=== PATIENT | female | born 1950 | race Caucasian/White ===

== ENCOUNTER 2017-01-21 18:31 | Inpatient (IN) | payer MEDICARE, OTHER ==
[~2017-01-21] VITALS: Ht 162.6 cm; Wt 95.3 kg
[2017-01-21 18:30] VITALS: BP 137/69
--- NOTE | 2017-01-21 18:30 | NUR ---
Received this admission from [facility] per gurney/ambulance with the chief complaint of weakness, s/p fall with the diagnosis of General debility. Transferred to bed comfortably. Routine admission care rendered. Awake, alert, oriented x 4, limited movement of RUE and LLE, continent of bowel and bladder. Endorsed for further care and eval.
--- NOTE | 2017-01-21 19:00 | NUR ---
Received report from Michele Hunter RN. Received patient sitting up in bed. Son at bedside. Dr. Garza at bedside. Patient is alert and verbally responsive. Able to make needs known. Denies any pain and discomfort at this time. No acute distress. No SOB. Patient is on room air. Kept clean and dry. All needs attended to promptly. Call light within reach. Will continue to monitor.
--- NOTE | 2017-01-21 20:02 | NUR ---
Patient seen and examined by Dr. Garza with order to do CT of the right shoulder/humerus, left hip and left knee to rule out fracture and for Ortho consult. Orders carried out. Dr. Walls (ortho home care companion) made aware and agreeable with diagnostics as ordered above and to notify him of the results. endorsed accordingly to mine shifter. Addendum: 01/21/17 at 2047 by CORINE FARIAS RN Addendum: Verified medication list with Dr. Garza and made order changes. Orders carried out.
[2017-01-21 20:04] VITALS: BP 141/65
[2017-01-21] MEDS ORDERED: MODA100T14 PO (20:07)
[2017-01-21] MEDS ORDERED: ZOLP10TA2 PO (20:07)
[2017-01-21] MEDS ORDERED: LORA1TAB PO (20:07)
[2017-01-21] MEDS ORDERED: ATOR20TA PO (20:07)
[2017-01-21] MEDS ORDERED: SUCR1TAB PO (20:07)
[2017-01-21] MEDS ORDERED: IRON150C10 PO (20:07)
[2017-01-21] MEDS ORDERED: TAMS0.4C34 PO (20:07)
[2017-01-21] MEDS ORDERED: PANT40TA4 PO (20:07)
[2017-01-21] MEDS ORDERED: VENL75CA62 PO (20:07)
[2017-01-21] MEDS ORDERED: PARO20TA7 PO (20:07)
[2017-01-21] MEDS ORDERED: GABA600T2 PO (20:07)
[2017-01-21] MEDS ORDERED: MORP30TA PO (20:07)
[2017-01-21] MEDS ORDERED: DILT180C PO (20:07)
[2017-01-21] MEDS ORDERED: MORP15TA71 PO (20:32)
--- NOTE | 2017-01-21 21:45 | NUR ---
Patient brought down to CT scan by radiology via wheelchair. Tolerated transfer well.
[2017-01-21] MEDS: SUCRALFATE 1 G TABLET PO SCH (22:40)
[2017-01-21] MEDS: FERROUS SULFATE 325 MG TABEC PO SCH (22:40)
[2017-01-21] MEDS: ATORVASTATIN 20 MG TABLET PO SCH (22:40)
[2017-01-21] MEDS: MORPHINE SULFATE SR 15 MG TABLET.SA PO SCH (22:42)
[2017-01-21] MEDS: LORAZEPAM 1 MG TABLET PO PRN (22:42)
--- NOTE | 2017-01-21 22:45 | NUR ---
Called Radiology and ask for patient CT scan result, per Jaime, scan will be read tomorrow AM.
[2017-01-21] MEDS: ZOLPIDEM 5 MG TABLET PO PRN (23:37)
--- NOTE | 2017-01-22 05:16 | NUR ---
PATIENT SLEPT MOST OF THE NIGHT, NO SOB NO CHEST PAIN, REQUIRES MIN TO MAX ASSIST WITH ADL'S, CALL LIGHTS WITHIN REACH.
[2017-01-22] MEDS: PANTOPRAZOLE SODIUM 40 MG TABLET.DR PO SCH ×2 (06:25→17:30)
[2017-01-22] MEDS: MORPHINE SULFATE SR 15 MG TABLET.SA PO SCH (06:27)
[2017-01-22 07:33] LABS: BASOPHILS % (AUTO) 0.5 % (0.0-2.0); EOSINOPHILS # (AUTO) 0.4 K/uL (0.0-0.7); EOSINOPHILS % (AUTO) 5.9 % (0.0-7.0); HEMATOCRIT 28.6 % (37-47); LYMPHOCYTES # (AUTO) 1.5 K/UL (0.8-4.8); LYMPHOCYTES % (AUTO) 20.8 % (20.5-51.5); MEAN CORPUSCULAR HEMOGLOBIN 24.4 UUG (27.0-31.0); MEAN CORPUSCULAR HGB CONC 32 g/dL (32.0-37.0); MEAN CORPUSCULAR VOLUME 77.3 FL (81.0-99.0); MONOCYTES # (AUTO) 0.8 K/UL (0.1-1.30); MONOCYTES % (AUTO) 10.5 % (0.0-11.0); NEUTROPHILS # (AUTO) 4.7 K/UL (1.8-8.9); NEUTROPHILS % (AUTO) 62.3 % (38.5-71.5); PLATELET COUNT (AUTO) 356 K/UL (150-450); WHITE BLOOD COUNT (AUTO) 7.4 K/UL (4.0-11.2)
[2017-01-22 07:35] LABS: CREATININE 0.8 mg/dL (0.6-1.3); MAGNESIUM 1.8 mg/dL (1.8-2.4); PHOSPHOROUS 2.8 mg/dL (2.5-4.9); POTASSIUM 3.8 mmol/L (3.5-5.1)
--- NOTE | 2017-01-22 08:00 | NUR ---
Awake, alert, oriented x 4. Continent, requested for bedpan.
[2017-01-22 08:22] VITALS: BP 147/78
[2017-01-22] MEDS ORDERED: HOME MED MISCELLANEOUS PO SCH (09:00)
[2017-01-22] MEDS: SUCRALFATE 1 G TABLET PO SCH ×4 (10:24→21:30)
[2017-01-22] MEDS: DILTIAZEM HCL CD 180 MG CAP.SR.24H PO SCH (10:25)
[2017-01-22] MEDS: VENLAFAXINE XR 75 MG CAP.SR.24H PO SCH (10:25)
[2017-01-22] MEDS: FERROUS SULFATE 325 MG TABEC PO SCH ×2 (10:25→21:30)
[2017-01-22] MEDS: TAMSULOSIN HCL 0.4 MG CAP.SR.24H PO SCH (10:26)
[2017-01-22] MEDS: GABAPENTIN 300 MG CAPSULE PO SCH ×3 (10:26→17:31)
[2017-01-22] MEDS: PAROXETINE HCL 20 MG TABLET PO SCH (10:26)
[2017-01-22] MEDS: MODAFINIL 100 MG TABLET PO SCH (10:26)
--- NOTE | 2017-01-22 11:00 | NUR ---
CT report relayed to Dr. Garza. Sling ordered. DENAE non weight bearing, instructed.
--- NOTE | 2017-01-22 14:00 | NUR ---
Anxious. Ativan po given as requested.
[2017-01-22] MEDS: MORPHINE SULFATE SR 30 MG TABLET.SA PO SCH ×2 (14:06→21:31)
[2017-01-22] MEDS: LORAZEPAM 1 MG TABLET PO PRN ×2 (14:07→21:34)
[2017-01-22 18:08] VITALS: BP 136/67
--- NOTE | 2017-01-22 18:21 | NUR ---
Sling to RUE on, comfortable
--- NOTE | 2017-01-22 19:20 | NUR ---
Received report from ASHLI Angeles. Received patient in bed. Alert and verbally responsive. Able to make needs known. Denies any pain and discomfort. No acute distress. No SOB. On Room air. Sling to RUE. Kept clean and dry. All needs attened to promptly. Call light within reach. Will continue to monitor.
[2017-01-22 20:34] VITALS: BP 139/74
[2017-01-22] MEDS: ATORVASTATIN 20 MG TABLET PO SCH (21:30)
[2017-01-22] MEDS: ZOLPIDEM 5 MG TABLET PO PRN (23:18)
[2017-01-23] MEDS: PANTOPRAZOLE SODIUM 40 MG TABLET.DR PO SCH ×2 (06:31→17:14)
[2017-01-23] MEDS: MORPHINE SULFATE SR 30 MG TABLET.SA PO SCH ×2 (06:31→14:00)
--- NOTE | 2017-01-23 06:58 | NUR ---
Patient slept well throughout the night. No c/o pain and discomfort. No acute distress. No SOB. MS Contin 30mg given. Kept clean and dry. All needs attended to promptly. Call light within reach. Will continue to monitor.
--- NOTE | 2017-01-23 07:00 | NUR ---
Received report form morning shift. Safety check, bed in locked/low position, side rails up x2.
[2017-01-23 08:00] VITALS: BP 129/68
[2017-01-23] MEDS: VENLAFAXINE XR 75 MG CAP.SR.24H PO SCH (09:17)
[2017-01-23] MEDS: GABAPENTIN 300 MG CAPSULE PO SCH ×3 (09:18→17:14)
[2017-01-23] MEDS: SUCRALFATE 1 G TABLET PO SCH ×4 (09:18→21:10)
[2017-01-23] MEDS: DILTIAZEM HCL CD 180 MG CAP.SR.24H PO SCH (09:18)
[2017-01-23] MEDS: PAROXETINE HCL 20 MG TABLET PO SCH (09:18)
[2017-01-23] MEDS: MODAFINIL 100 MG TABLET PO SCH (09:18)
[2017-01-23] MEDS: FERROUS SULFATE 325 MG TABEC PO SCH ×2 (09:18→21:10)
[2017-01-23] MEDS: TAMSULOSIN HCL 0.4 MG CAP.SR.24H PO SCH (09:18)
--- NOTE | 2017-01-23 12:00 | NUR ---
Patient working with PT, patient tolerated well.
[2017-01-23] MEDS ORDERED: LIDOCAINE VISCUS 2% 15 ML UDC MM SCH (13:30)
[2017-01-23] MEDS ORDERED: LIDOCAINE VISCUS 2% 15 ML UDC MM PRN (13:45)
[2017-01-23] MEDS: CHLORHEXIDINE GLUCONATE 15 ML MOUTHWASH MM SCH ×2 (13:58→21:21)
--- NOTE | 2017-01-23 14:47 | NUR ---
LAB reported that the patient is positive for MRSA.
--- NOTE | 2017-01-23 15:48 | NUR ---
Notified Dr. Adolph Treadwell regarding positive result of MRSA of nares with new order of Bactroban BID x 5 days. Order carried out. Patient made aware.
--- NOTE | 2017-01-23 16:23 | NUR ---
Patient continues to ask for morphine and ativan despite low blood pressures and sedation. Patient notified that BP is too low, and her sedation puts her at risk for respiratory depression. Alternate pain medication (Tylenol) is being requested from Dr. Colunga
[2017-01-23] MEDS ORDERED: OXYCODONE/APAP 5-325 MG TABLET PO PRN (17:00)
[2017-01-23] MEDS: ACETAMINOPHEN 325 MG TABLET PO PRN (17:15)
--- NOTE | 2017-01-23 18:57 | NUR ---
PATIENT PARTICIPATED IN PHYSICAL THERAPY, TOLERATED WELL. PATIENT EXPERIENCED PAIN RELIEF WITH TYLENOL. MEDICATION REGIMEN HAS CHANGED PLEASE SEE EMAR. PATIENT IS CURRENTLY PAIN FREE AND COMFORTABLE. PATIENT WILL BE SEEN BY ORTHO FOR POSSIBLE SURGERY OF RIGHT SHOULDER.
--- NOTE | 2017-01-23 19:30 | NUR ---
RECEIVED PATIENT RESTING IN BED, IN NO ACUTE DISTRESS, NO SOB. SLING ON RIGHT ARM, CSM ADEQUATE TO RIGHT FINGERS, PATIENT NOT TO LIFT ANY WEIGHT ON THE RIGHT ARM. PATIENT C/O OF GENERALIZED PAIN, REPOSITIONED FOR COMFORT. PAIN MED DUE AT 2200. FIRST TIME GETTING UP TO USE THE BEDSIDE COMMODE WITH 2 PERSON ASSIST AND WALKER, PATIENT TOLERATED WELL. CALL LIGHT WITHIN REACH, BED ALARM ON. WILL CONTINUE TO MONITOR.
[2017-01-23 20:00] VITALS: BP 128/66
[2017-01-23] MEDS: ATORVASTATIN 20 MG TABLET PO SCH (21:10)
[2017-01-23] MEDS: MORPHINE SULFATE SR 15 MG TABLET.SA PO SCH (21:12)
[2017-01-23] MEDS: MUPIROCIN 2% OINT 22 GM TUBE NS SCH (21:22)
[2017-01-23] MEDS: LORAZEPAM 1 MG TABLET PO PRN (22:09)
[2017-01-24] MEDS: ZOLPIDEM 5 MG TABLET PO PRN (02:05)
--- NOTE | 2017-01-24 06:00 | NUR ---
slept on and off tonight. was able to get oob with nwb of right arm, steadying herself with walker and pivoting a bit with walking to bsc to void.assisted with putting her legs back in bed after retrun from bsc. medicated with atc morphine po, ativan x 1 for anxiety and ambien for sleep. pain is manageable enough where she could sleep at intervals.call light within reach aat with bed alarm on. appears in nad at this time
[2017-01-24] MEDS: PANTOPRAZOLE SODIUM 40 MG TABLET.DR PO SCH ×2 (06:43→17:04)
[2017-01-24] MEDS: MORPHINE SULFATE SR 15 MG TABLET.SA PO SCH ×3 (06:44→22:01)
[2017-01-24 08:00] VITALS: BP 138/71
[2017-01-24] MEDS: FERROUS SULFATE 325 MG TABEC PO SCH ×2 (09:00→22:00)
[2017-01-24] MEDS: TAMSULOSIN HCL 0.4 MG CAP.SR.24H PO SCH (09:00)
[2017-01-24] MEDS: MODAFINIL 100 MG TABLET PO SCH (09:00)
[2017-01-24] MEDS: DILTIAZEM HCL CD 180 MG CAP.SR.24H PO SCH (09:00)
[2017-01-24] MEDS: MUPIROCIN 2% OINT 22 GM TUBE NS SCH ×2 (09:00→22:02)
[2017-01-24] MEDS: VENLAFAXINE XR 75 MG CAP.SR.24H PO SCH (09:00)
[2017-01-24] MEDS: SUCRALFATE 1 G TABLET PO SCH ×4 (09:01→22:02)
[2017-01-24] MEDS: PAROXETINE HCL 20 MG TABLET PO SCH (09:01)
[2017-01-24] MEDS: CHLORHEXIDINE GLUCONATE 15 ML MOUTHWASH MM SCH ×2 (09:01→22:02)
[2017-01-24] MEDS: GABAPENTIN 300 MG CAPSULE PO SCH ×3 (09:02→17:04)
[2017-01-24] MEDS: SENNOSIDES/DOCUSATE SODIUM TABLET PO SCH (09:45)
[2017-01-24] MEDS ORDERED: BISACODYL 5 MG TABLET.DR PO PRN (09:45)
[2017-01-24] MEDS: LORAZEPAM 1 MG TABLET PO PRN ×2 (12:30→23:16)
[2017-01-24] MEDS: OXYCODONE/APAP 5-325 MG TABLET PO PRN (12:45)
--- NOTE | 2017-01-24 13:43 | NUR ---
Proof Inspector: SW met with patient at beside to assess needs and provide support. Pt was admitted for debility and functional impairment due to a fall at home. Per pt, she suffered from a fall at home and required rehabilitation. Pt appeared fatigued during interview and reported she had just completed some physical therapy. Pt verbalized she was feeling "tired" after physical therapy. She appeared depressed due to decline in functioning. She also appeared guarded during interview and provided minimal information. Per pt, she lives at home alone and has a caregiver. Pt reported to have a strong support system from her children and stated they are very involved. SW provided emotional support to deal with pt's depressive symptoms related to her decline in functioning. SW provided supportive counseling to address patients issues of loss related to her recent fall and decline in functioning. SW will continue to provide support and address issues of loss related to recent falls and hospitalization.
--- NOTE | 2017-01-24 15:30 | NUR ---
Dr. Florence paged in regard to communited fracture of the humerous head of the right arm. According to alumnae secretary MD is likely in surgery and will paged at its completion. Patient at this time is comfortable. Pain medication given as scheduled and PRNs utilized for break through pain as well. Will continue to monitor for safety with transfers and comfort.
--- NOTE | 2017-01-24 19:30 | NUR ---
received patient in nad, and without c/o acute pain.resting comfortably. right arm in sling and arm is not to be used to lift or carry items. csm adequate to right fingers. call light within reach aat. and bed alarm on. pm snack given and taken at 100%
[2017-01-24 20:59] VITALS: BP 127/65
[2017-01-24] MEDS: ATORVASTATIN 20 MG TABLET PO SCH (22:00)
[2017-01-25] MEDS: ZOLPIDEM 5 MG TABLET PO PRN ×2 (00:56→23:07)
--- NOTE | 2017-01-25 06:00 | NUR ---
SLEPT WELL LAST NIGHT WITH MANAGEABLE PAIN WITH HER ATC MS CONTIN, ATIVAN X1 PO AND AMBIEN FOR SLEEP. NO RESPIRATORY DISTRESS NOTED.CSM ADEQUATE TO RIGHT FINGERS, CNTINUES WITH SLING ON RIGHT ARM. CALL LIGHT WITHIN REACH.
[2017-01-25] MEDS: PANTOPRAZOLE SODIUM 40 MG TABLET.DR PO SCH ×2 (06:37→17:15)
[2017-01-25] MEDS: MORPHINE SULFATE SR 15 MG TABLET.SA PO SCH ×3 (06:38→21:12)
--- NOTE | 2017-01-25 07:20 | NUR ---
report received from Adali CORNELIUS. patient is full code Addendum: 01/25/17 at 1027 by NATHAN LEVINE RN Amended: Links added.
[2017-01-25 08:00] VITALS: BP 132/71
[2017-01-25] MEDS: FERROUS SULFATE 325 MG TABEC PO SCH ×2 (09:05→21:08)
[2017-01-25] MEDS: MODAFINIL 100 MG TABLET PO SCH (09:05)
[2017-01-25] MEDS: VENLAFAXINE XR 75 MG CAP.SR.24H PO SCH (09:05)
[2017-01-25] MEDS: PAROXETINE HCL 20 MG TABLET PO SCH (09:05)
[2017-01-25] MEDS: TAMSULOSIN HCL 0.4 MG CAP.SR.24H PO SCH (09:05)
[2017-01-25] MEDS: SENNOSIDES/DOCUSATE SODIUM TABLET PO SCH (09:06)
[2017-01-25] MEDS: SUCRALFATE 1 G TABLET PO SCH ×4 (09:06→21:09)
[2017-01-25] MEDS: DILTIAZEM HCL CD 180 MG CAP.SR.24H PO SCH (09:06)
[2017-01-25] MEDS: GABAPENTIN 300 MG CAPSULE PO SCH ×3 (09:06→17:15)
[2017-01-25] MEDS: CHLORHEXIDINE GLUCONATE 15 ML MOUTHWASH MM SCH ×2 (09:07→21:10)
[2017-01-25] MEDS: MUPIROCIN 2% OINT 22 GM TUBE NS SCH ×2 (09:07→21:10)
--- NOTE | 2017-01-25 09:09 | NUR ---
Patient sleeping but arousable. wanted to be left alone. breakfast tray untouched. Addendum: 01/25/17 at 0909 by NATHAN LEVINE RN Amended: Links added.
--- NOTE | 2017-01-25 11:04 | NUR ---
took am meds. still did not eat breakfast Addendum: 01/25/17 at 1105 by NATHAN LEVINE RN Amended: Links added.
[2017-01-25] MEDS: OXYCODONE/APAP 5-325 MG TABLET PO PRN (12:53)
[2017-01-25] MEDS: LORAZEPAM 1 MG TABLET PO PRN ×2 (12:53→21:15)
--- NOTE | 2017-01-25 13:01 | NUR ---
medicated for anxiety and for right shoulder pain and right knee pain. Addendum: 01/25/17 at 1301 by NATHAN LEVINE RN Amended: Links added.
--- NOTE | 2017-01-25 17:19 | NUR ---
family at the bedside. had questions re: isolation precautions. Education given Addendum: 01/25/17 at 1719 by NATHAN LEVINE RN Amended: Links added.
--- NOTE | 2017-01-25 19:30 | NUR ---
Received report from day shift. Received patient in bed. On contact isolation for MRSA nares. Contact precautions followed by staff. Denies any pain and discomfort at this time. No acute distress noted. No SOB. On room air. Sling to RUE in place. Kept clean and dry. All needs attended to promptly. Call light within reach. Will continue to monitor.
[2017-01-25] MEDS: ATORVASTATIN 20 MG TABLET PO SCH (21:08)
[2017-01-25 22:05] VITALS: BP 137/70
[2017-01-26] MEDS: MORPHINE SULFATE SR 15 MG TABLET.SA PO SCH ×3 (06:22→21:27)
--- NOTE | 2017-01-26 06:26 | NUR ---
Patient is awake and verbally responsive. Slept comfortably throughout the night. No acute distress noted. No SOB. Pain level is 6/10. Pain location noted in right shoulder, left knee and left hip. MS Contin 15 mg given. Sling to RUE in place due to fracture. Kept clean and dry. All needs attended to promptly. Call light within reach. Will continue to monitor.
[2017-01-26] MEDS: PANTOPRAZOLE SODIUM 40 MG TABLET.DR PO SCH ×2 (06:30→17:27)
[2017-01-26 08:29] VITALS: BP 138/64
[2017-01-26] MEDS: CHLORHEXIDINE GLUCONATE 15 ML MOUTHWASH MM SCH ×2 (08:41→21:26)
[2017-01-26] MEDS: MUPIROCIN 2% OINT 22 GM TUBE NS SCH ×2 (08:42→21:27)
[2017-01-26] MEDS: FERROUS SULFATE 325 MG TABEC PO SCH ×2 (08:44→21:26)
[2017-01-26] MEDS: TAMSULOSIN HCL 0.4 MG CAP.SR.24H PO SCH (08:44)
[2017-01-26] MEDS: MODAFINIL 100 MG TABLET PO SCH (08:44)
[2017-01-26] MEDS: DILTIAZEM HCL CD 180 MG CAP.SR.24H PO SCH (08:45)
[2017-01-26] MEDS: SUCRALFATE 1 G TABLET PO SCH ×4 (08:45→21:26)
[2017-01-26] MEDS: GABAPENTIN 300 MG CAPSULE PO SCH ×3 (08:46→17:27)
[2017-01-26] MEDS: VENLAFAXINE XR 75 MG CAP.SR.24H PO SCH (08:46)
[2017-01-26] MEDS: SENNOSIDES/DOCUSATE SODIUM TABLET PO SCH (08:46)
[2017-01-26] MEDS: PAROXETINE HCL 20 MG TABLET PO SCH (08:49)
[2017-01-26 10:32] LABS: BASOPHILS % (AUTO) 0.5 % (0.0-2.0); EOSINOPHILS # (AUTO) 0.6 K/uL (0.0-0.7); EOSINOPHILS % (AUTO) 7.8 % (0.0-7.0); HEMATOCRIT 28.5 % (37-47); HEMOGLOBIN 9.3 G/DL (12.0-16.0); LYMPHOCYTES # (AUTO) 1.1 K/UL (0.8-4.8); LYMPHOCYTES % (AUTO) 14.9 % (20.5-51.5); MEAN CORPUSCULAR HEMOGLOBIN 25.3 UUG (27.0-31.0); MEAN CORPUSCULAR HGB CONC 33 g/dL (32.0-37.0); MONOCYTES # (AUTO) 0.7 K/UL (0.1-1.30); MONOCYTES % (AUTO) 9.8 % (0.0-11.0); NEUTROPHILS # (AUTO) 4.7 K/UL (1.8-8.9); PLATELET COUNT (AUTO) 385 K/UL (150-450); RED BLOOD CELL COUNT(AUTO) 3.66 MIL/UL (4.2-5.4); WHITE BLOOD COUNT (AUTO) 7.1 K/UL (4.0-11.2)
[2017-01-26 11:24] LABS: BILIRUBIN,TOTAL 0.2 mg/dL (0.2-1.0); CREATININE 0.8 mg/dL (0.6-1.3); MAGNESIUM 2.1 mg/dL (1.8-2.4); PHOSPHOROUS 3.8 mg/dL (2.5-4.9); POTASSIUM 3.6 mmol/L (3.5-5.1); TOTAL PROTEIN, SERUM 5.8 g/dL (6.4-8.2)
[2017-01-26 13:12] LABS: THYROID STIMULATING HORMONE 1.388 mIU/mL (0.358-3.740)
--- NOTE | 2017-01-26 16:28 | NUR ---
IDT MEETING 01/26/17
[2017-01-26] MEDS: LORAZEPAM 1 MG TABLET PO PRN (17:27)
[2017-01-26] MEDS: OXYCODONE/APAP 5-325 MG TABLET PO PRN (17:31)
[2017-01-26] MEDS: ATORVASTATIN 20 MG TABLET PO SCH (21:26)
[2017-01-26 22:09] VITALS: BP 121/60
[2017-01-26] MEDS: ZOLPIDEM 5 MG TABLET PO PRN (23:15)
[2017-01-27] MEDS: PANTOPRAZOLE SODIUM 40 MG TABLET.DR PO SCH ×2 (06:37→15:59)
[2017-01-27] MEDS: MORPHINE SULFATE SR 15 MG TABLET.SA PO SCH ×3 (06:39→21:18)
--- NOTE | 2017-01-27 07:11 | NUR ---
Patient is awake and verbally responsive. Able to make needs known. Denies any pain and discomfort. MS Contin 15mg given as ordered. No acute distress. No SOB. Patient up with assist to bedside commode this AM. Tolerated well. Sling to RUE in place. All needs attended to promptly. Call light within reach. Will continue to monitor.
[2017-01-27 08:15] VITALS: BP 139/72
--- NOTE | 2017-01-27 08:33 | NUR ---
RECEIVED PATIENT ASLEEP IN BED. CALL LIGHT WITHIN REACH. NO S/S OF DISTRESS. WILL CONTINUE TO MONITOR
[2017-01-27] MEDS: MODAFINIL 100 MG TABLET PO SCH (09:26)
[2017-01-27] MEDS: VENLAFAXINE XR 75 MG CAP.SR.24H PO SCH (09:27)
[2017-01-27] MEDS: DILTIAZEM HCL CD 180 MG CAP.SR.24H PO SCH (09:27)
[2017-01-27] MEDS: FERROUS SULFATE 325 MG TABEC PO SCH ×2 (09:28→21:19)
[2017-01-27] MEDS: SENNOSIDES/DOCUSATE SODIUM TABLET PO SCH (09:28)
[2017-01-27] MEDS: GABAPENTIN 300 MG CAPSULE PO SCH ×3 (09:28→16:53)
[2017-01-27] MEDS: TAMSULOSIN HCL 0.4 MG CAP.SR.24H PO SCH (09:28)
[2017-01-27] MEDS: SUCRALFATE 1 G TABLET PO SCH ×4 (09:28→21:19)
[2017-01-27] MEDS: PAROXETINE HCL 20 MG TABLET PO SCH (09:28)
[2017-01-27] MEDS: CHLORHEXIDINE GLUCONATE 15 ML MOUTHWASH MM SCH ×2 (09:29→21:23)
[2017-01-27] MEDS: MUPIROCIN 2% OINT 22 GM TUBE NS SCH ×2 (09:29→21:23)
--- NOTE | 2017-01-27 09:40 | NUR ---
PATIENT AWAKE ALERT AND ORIENTED. NO COMPLAINTS OF DISCOMFORT. STILL WITH SHOULDER AND BACK PAIN RATED 4/10. PAIN IMPROVED. SHE SAID SHE IS NOT USED TO EATING BREAKFAST. REFUSED TO EAT BREAKFAST BUT DRANK MILK. ENCOURAGED PATIENT TO MAKE NEEDS KNOWN AND CALL IF SHE NEEDS THE COMMODE. CALL LIGHT WITHIN REACH.
--- NOTE | 2017-01-27 11:40 | NUR ---
OT AXEL FOUND PATIENT IN SUPINE POSITION ON FLOOR NEXT TO HER BED. WHEN HE HEARD THE PATIENT IN A STARTLED VOICE. ACCORDING TO PATIENT, SHE USED HER COMMODE AND WANTED TO CHANGE HER CLOTHES, WHEN SHE TRIED TO GET HER CLOTHES, SHE FELL HITTING HER BUTTOCKS, POSTERIOR HEAD AND KNEES. PATIENT SAID " I THOUGHT I COULD DO IT ON MY OWN, SO I DID IT". PATIENT IS ALERT X4, AWAKE AND ORIENTED NO OBVIOUS BRUISE OR OPEN WOUNDS NOTED. ENCOURAGED PATIENT TO USE CALL LIGHT WHEN SHE NEEDS SOMETHING OR WHEN SHE NEEDS TO USE HER COMMODE. INFORMED DR. DAVILA, CT SCAN OF HEAD W/O CONTRAST AND L KNEE XRAY ORDERED AND DONE. INFORMED DR. ZAZUETA. PT EVALUATION DONE. INFORMED DIRECTOR, RAYNA CORNELIUS OF INCIDENT. INFORMED ALBER RODRIGUEZ SON-IN LAW OF INCIDENT. S/P FALL HUDDLE DONE WITH CHARGE NURSE, PT AND DRAFTER AUTOMOTIVE DESIGN LAYOUT.
[2017-01-27] MEDS: ACETAMINOPHEN 325 MG TABLET PO PRN (11:48)
[2017-01-27] MEDS: LORAZEPAM 1 MG TABLET PO PRN (15:59)
--- NOTE | 2017-01-27 16:00 | NUR ---
Called Dr. Walls's office to follow up consultation regarding CT scan result of right shoulder but per Hannah clerk secretary MD is not available and advised to just call 's cellphone number. Called Dr. Walls's cellphone number but no reply hence left a message, awaiting call back.
--- NOTE | 2017-01-27 18:25 | NUR ---
INFORMED DR. DAVILA OF XRAY RESULT AND CT SCAN RESULT. NO NEW ORDERS AT THIS TIME. PATIENT AWAKE, ALERT AND ORIENTED. NO CHANGES IN MENTAL STATUS.
[2017-01-27] MEDS: OXYCODONE/APAP 5-325 MG TABLET PO PRN ×3 (18:41→19:17)
[2017-01-27] MEDS: ATORVASTATIN 20 MG TABLET PO SCH (21:18)
[2017-01-27 21:38] VITALS: BP 136/68
[2017-01-27] MEDS: ZOLPIDEM 5 MG TABLET PO PRN (23:08)
[2017-01-28] MEDS: LORAZEPAM 1 MG TABLET PO PRN ×2 (04:53→21:30)
[2017-01-28] MEDS: PANTOPRAZOLE SODIUM 40 MG TABLET.DR PO SCH ×2 (06:30→16:30)
[2017-01-28] MEDS: MORPHINE SULFATE SR 15 MG TABLET.SA PO SCH ×3 (06:30→21:31)
--- NOTE | 2017-01-28 06:36 | NUR ---
Patient alert and oriented and verbally able to let needs known. Slept intermittently throughout the night. Showed no signs of respiratory distress. Patient does have call light within reach, all needs attended to.
[2017-01-28 07:00] VITALS: BP 139/73
[2017-01-28] MEDS: MODAFINIL 100 MG TABLET PO SCH (09:00)
--- NOTE | 2017-01-28 11:08 | NUR ---
DAILY NURSING NOTE LEFT WITH TERELL AT [facility] [phone] FOR ORTHO CONSULT REQUESTED.
[2017-01-28] MEDS: VENLAFAXINE XR 75 MG CAP.SR.24H PO SCH (12:31)
[2017-01-28] MEDS: CHLORHEXIDINE GLUCONATE 15 ML MOUTHWASH MM SCH ×2 (12:33→21:31)
[2017-01-28] MEDS: OXYCODONE/APAP 5-325 MG TABLET PO PRN (12:33)
[2017-01-28] MEDS: SUCRALFATE 1 G TABLET PO SCH ×4 (12:34→21:30)
[2017-01-28] MEDS: MUPIROCIN 2% OINT 22 GM TUBE NS SCH ×2 (12:34→21:31)
[2017-01-28] MEDS: DILTIAZEM HCL CD 180 MG CAP.SR.24H PO SCH (12:35)
[2017-01-28] MEDS: SENNOSIDES/DOCUSATE SODIUM TABLET PO SCH (12:38)
[2017-01-28] MEDS: FERROUS SULFATE 325 MG TABEC PO SCH ×2 (12:39→21:29)
[2017-01-28] MEDS: TAMSULOSIN HCL 0.4 MG CAP.SR.24H PO SCH (12:39)
[2017-01-28] MEDS: GABAPENTIN 300 MG CAPSULE PO SCH ×3 (12:39→17:00)
[2017-01-28] MEDS: PAROXETINE HCL 20 MG TABLET PO SCH (12:39)
--- NOTE | 2017-01-28 15:10 | NUR ---
DAILY NURSING NOTE AFTERNOON CARAFATE AND GABAPENTIN HELD D/T FACT SHE JUST TOOK THE MORNING DOSE LATE BECAUSE SHE WANTED TO SLEEP AND NOT BE DISTURBED
--- NOTE | 2017-01-28 19:30 | NUR ---
Received report from ASHLI Beavers. Received patient in bed. Alert and oriented. Able to make needs known. Denies any pain and discomfort at this time. No acute distress. No SOB. On room air. Patient remains on contact isolation for MRSA nares. Contact precautions observed by staff. Sling on RUE in place. Per day shift nurse, patient was seen by Dr. Walls and verbalized for possible surgery of the right shoulder this weekend. No following orders at this time. Also received from report that patient fell a few days ago. Strongly verbalized to patient to use call light when assistance is needed. Patient verbalize understanding. All needs attended to promptly. Call light within reach. Will continue to monitor.
[2017-01-28 20:46] VITALS: BP 135/65
[2017-01-28] MEDS: ATORVASTATIN 20 MG TABLET PO SCH (21:30)
[2017-01-28] MEDS: ZOLPIDEM 5 MG TABLET PO PRN (23:10)
[2017-01-29] MEDS: PANTOPRAZOLE SODIUM 40 MG TABLET.DR PO SCH ×2 (06:31→16:39)
[2017-01-29] MEDS: MORPHINE SULFATE SR 15 MG TABLET.SA PO SCH ×3 (06:34→22:08)
--- NOTE | 2017-01-29 06:36 | NUR ---
Patient awake and slept through the night. No c/o pain and discomfort. No acute distress. No SOB. Kept clean and dry. Sling applied to RUE. AM meds given. Assisted to Bedside commode. All needs attended to promptly. Call light within reach. Will continue to monitor.
[2017-01-29 08:00] VITALS: BP 144/71
[2017-01-29] MEDS: SENNOSIDES/DOCUSATE SODIUM TABLET PO SCH (09:15)
[2017-01-29] MEDS: CHLORHEXIDINE GLUCONATE 15 ML MOUTHWASH MM SCH ×2 (09:15→22:12)
[2017-01-29] MEDS: CHOLECALCIFEROL 400 UNITS TABLET PO SCH (09:18)
[2017-01-29] MEDS: DILTIAZEM HCL CD 180 MG CAP.SR.24H PO SCH (09:18)
[2017-01-29] MEDS: TAMSULOSIN HCL 0.4 MG CAP.SR.24H PO SCH (09:18)
[2017-01-29] MEDS: MODAFINIL 100 MG TABLET PO SCH (09:19)
[2017-01-29] MEDS: PAROXETINE HCL 20 MG TABLET PO SCH (09:20)
[2017-01-29] MEDS: SUCRALFATE 1 G TABLET PO SCH ×4 (09:20→22:08)
[2017-01-29] MEDS: GABAPENTIN 300 MG CAPSULE PO SCH ×3 (09:20→16:39)
[2017-01-29] MEDS: VENLAFAXINE XR 75 MG CAP.SR.24H PO SCH (09:20)
[2017-01-29] MEDS: FERROUS SULFATE 325 MG TABEC PO SCH ×2 (09:20→22:08)
[2017-01-29] MEDS: OXYCODONE/APAP 5-325 MG TABLET PO PRN (12:19)
--- NOTE | 2017-01-29 19:00 | NUR ---
Per Antonina vehicle maintenance supervisor, Dr. Walls is scheduling patient for surgery on Tuesday, still need to confirm time. Informed patient and son Sylvester who is at bedside. Patient remains alert, verbally responsive, coherent, afebrile, not in any form of acute distress. Sling on the right arm. Patient was able to tolerate physical and occupational therapy today. Assisted to her needs. Reminded to always use call light for assistance. Call light placed within reach. Endorsed accordingly to production supervisor off shift nurse Ciera.
[2017-01-29 20:45] VITALS: BP 116/62
[2017-01-29] MEDS: ATORVASTATIN 20 MG TABLET PO SCH (22:08)
[2017-01-29] MEDS: LORAZEPAM 1 MG TABLET PO PRN (22:13)
[2017-01-29] MEDS: ZOLPIDEM 5 MG TABLET PO PRN (23:48)
[2017-01-30] MEDS: PANTOPRAZOLE SODIUM 40 MG TABLET.DR PO SCH ×2 (06:44→17:09)
[2017-01-30] MEDS: MORPHINE SULFATE SR 15 MG TABLET.SA PO SCH ×3 (06:46→22:01)
[2017-01-30 08:25] VITALS: BP 129/68
[2017-01-30] MEDS: GABAPENTIN 300 MG CAPSULE PO SCH ×3 (10:44→17:09)
[2017-01-30] MEDS: FERROUS SULFATE 325 MG TABEC PO SCH ×2 (10:44→20:37)
[2017-01-30] MEDS: SENNOSIDES/DOCUSATE SODIUM TABLET PO SCH (10:44)
[2017-01-30] MEDS: DILTIAZEM HCL CD 180 MG CAP.SR.24H PO SCH (10:44)
[2017-01-30] MEDS: SUCRALFATE 1 G TABLET PO SCH ×4 (10:44→20:38)
[2017-01-30] MEDS: VENLAFAXINE XR 75 MG CAP.SR.24H PO SCH (10:45)
[2017-01-30] MEDS: CHOLECALCIFEROL 400 UNITS TABLET PO SCH (10:45)
[2017-01-30] MEDS: MODAFINIL 100 MG TABLET PO SCH (10:45)
[2017-01-30] MEDS: TAMSULOSIN HCL 0.4 MG CAP.SR.24H PO SCH (10:45)
[2017-01-30] MEDS: PAROXETINE HCL 20 MG TABLET PO SCH (10:45)
[2017-01-30] MEDS: CHLORHEXIDINE GLUCONATE 15 ML MOUTHWASH MM SCH ×2 (10:56→20:37)
[2017-01-30] MEDS: OXYCODONE/APAP 5-325 MG TABLET PO PRN ×2 (10:57→20:21)
--- NOTE | 2017-01-30 11:03 | NUR ---
PT SEEN. GIVEN MEDS AND REQUESTED PERCOCET AND ATIVAN. TOLD PT THAT MEDS WILL BE DIVIDED. PT AGREED TO ADVICE. PTS RIGHT ARM KEPT NEUTRAL. WILL FOLLOW UP WITH SURGEON IF THERE ARE ANY ORDERS BEFORE SURGERY ON TUESDAY.
[2017-01-30] MEDS: ATORVASTATIN 20 MG TABLET PO SCH (20:37)
[2017-01-30 21:51] VITALS: BP 132/64
[2017-01-30] MEDS: ZOLPIDEM 5 MG TABLET PO PRN (23:28)
[2017-01-31] MEDS: MORPHINE SULFATE SR 15 MG TABLET.SA PO SCH (06:00)
[2017-01-31] MEDS: PANTOPRAZOLE SODIUM 40 MG TABLET.DR PO SCH (06:59)
[2017-01-31] MEDS ORDERED: FENTANYL CITRATE 100 MCG/2 ML AMPUL ONE (07:27)
[2017-01-31] MEDS ORDERED: MIDAZOLAM HCL 2 MG/2 ML VIAL ONE (07:28)
[2017-01-31] MEDS ORDERED: ROCURONIUM BROMIDE 50 MG/5 ML VIAL ONE (07:28)
--- NOTE | 2017-01-31 08:59 | NUR ---
received report from Ciera. Pt taken to ER. preop papers filled on chart. TP and 2 units RBC ordered. belongings in room and Antonina house wrecker put pt on 3 day hold for the unit. will continue to be updated by antonina for further instructions.
[2017-01-31] MEDS: CHLORHEXIDINE GLUCONATE 15 ML MOUTHWASH MM SCH (09:00)
[2017-01-31] MEDS: GABAPENTIN 300 MG CAPSULE PO SCH (09:00)
[2017-01-31] MEDS: SENNOSIDES/DOCUSATE SODIUM TABLET PO SCH (09:00)
[2017-01-31] MEDS: SUCRALFATE 1 G TABLET PO SCH (09:00)
[2017-01-31] MEDS: TAMSULOSIN HCL 0.4 MG CAP.SR.24H PO SCH (09:00)
[2017-01-31] MEDS: PAROXETINE HCL 20 MG TABLET PO SCH (09:00)
[2017-01-31] MEDS: MODAFINIL 100 MG TABLET PO SCH (09:00)
[2017-01-31] MEDS: FERROUS SULFATE 325 MG TABEC PO SCH (09:00)
[2017-01-31] MEDS: DILTIAZEM HCL CD 180 MG CAP.SR.24H PO SCH (09:00)
[2017-01-31] MEDS: VENLAFAXINE XR 75 MG CAP.SR.24H PO SCH (09:05)
[2017-01-31] MEDS: CHOLECALCIFEROL 400 UNITS TABLET PO SCH (09:09)
[2017-01-31] MEDS ORDERED: MORPHINE SULFATE 2 MG/1 ML DISP.SYRIN ONE (11:28)
== END 2017-02-02 16:01 | disposition short-term general hospital (02) | DRG 559 ==
PROVIDERS: ADMIT Physical Medicine & Rehabilitation Pain Medicine; ATTEND Physical Medicine & Rehabilitation Pain Medicine
DX: S42.301D Unspecified fracture of shaft of humerus, right arm, subsequent encounter for fracture with routine healing (principal); E43 Unspecified severe protein-calorie malnutrition; R53.81 Other malaise; R27.0 Ataxia, unspecified; G89.29 Other chronic pain; M17.12 Unilateral primary osteoarthritis, left knee; R29.6 Repeated falls; Z98.890 Other specified postprocedural states; J44.9 Chronic obstructive pulmonary disease, unspecified; J45.909 Unspecified asthma, uncomplicated; N18.9 Chronic kidney disease, unspecified; S72.92XD Unspecified fracture of left femur, subsequent encounter for closed fracture with routine healing; X58.XXXD Exposure to other specified factors, subsequent encounter; M85.80 Other specified disorders of bone density and structure, unspecified site; D64.9 Anemia, unspecified; F31.9 Bipolar disorder, unspecified; M51.36 Other intervertebral disc degeneration, lumbar region; E66.9 Obesity, unspecified; Z68.36 Body mass index [BMI] 36.0-36.9, adult; D50.9 Iron deficiency anemia, unspecified; E66.01 Morbid (severe) obesity due to excess calories; E78.5 Hyperlipidemia, unspecified; G62.9 Polyneuropathy, unspecified; G89.4 Chronic pain syndrome; Z86.73 Personal history of transient ischemic attack (TIA), and cerebral infarction without residual deficits; S72.002D Fracture of unspecified part of neck of left femur, subsequent encounter for closed fracture with routine healing; W19.XXXD Unspecified fall, subsequent encounter; Z79.891 Long term (current) use of opiate analgesic; M81.0 Age-related osteoporosis without current pathological fracture; M50.30 Other cervical disc degeneration, unspecified cervical region; K12.1 Other forms of stomatitis; E55.9 Vitamin D deficiency, unspecified; Z98.1 Arthrodesis status; Z87.891 Personal history of nicotine dependence; M25.511 Pain in right shoulder; M25.552 Pain in left hip; M54.5 Low back pain; R19.5 Other fecal abnormalities
CPT/HCPCS: 36415; 70450; 73200; 73562; 73700; 82306; 83550; 83735; 84100; 84443; 85025; 86850; 86900; 86901; 92610; 97110; 97112; 97116; 97161; 97165; 97530; 97535; J2250; J2270; J3010; J3490

== ENCOUNTER 2017-01-31 06:21 | Inpatient (IN) | payer MEDICARE, OTHER ==
[~2017-01-31] VITALS: Ht 162.6 cm; Wt 95.3 kg
[~2017-01-31 06:21] MED LIST: ATOR20TA PO; DILT180C PO; GABA600T2 PO; IRON150C10 PO; LORA1TAB PO; MODA100T14 PO; MORP15TA71 PO; PANT40TA4 PO; PARO20TA7 PO; SUCR1TAB PO; TAMS0.4C34 PO; VENL75CA62 PO; ZOLP10TA2 PO
[2017-01-31] MEDS ORDERED: SEVOFLURANE 250 ML BOTTLE IH ONE (08:28)
[2017-01-31] MEDS ORDERED: CEFAZOLIN 1 G VIAL MC ONE (08:28)
[2017-01-31] MEDS ORDERED: IV NORMAL SALINE 1000 ML BAG IV ONE (08:28)
[2017-01-31] MEDS ORDERED: PROPOFOL 200 MG/20 ML BOTTLE IV ONE (08:28)
[2017-01-31] MEDS ORDERED: ONDANSETRON 4 MG/2 ML VIAL IV ONE (08:28)
[2017-01-31] MEDS ORDERED: LIDOCAINE HCL 1% 20 ML VIAL MC ONE (08:28)
[2017-01-31] MEDS ORDERED: EPHEDRINE SULFATE 50 MG/ML AMPUL MC ONE (08:28)
[2017-01-31] MEDS ORDERED: DEXAMETHASONE SOD PHOSPHATE 4 MG INJ IV ONE (08:28)
[2017-01-31] MEDS ORDERED: IRR NORMAL SALINE IRRIGATION 1,000 ML BOTTLE IR ONE (08:32)
[2017-01-31] MEDS ORDERED: POLYMYXIN B SULFATE 500,000 UNITS, BACITRACIN 50,000 UNITS, NORMAL SALINE 20 ML MC ONE ×3 (09:15)
[2017-01-31] MEDS ORDERED: FENTANYL CITRATE 100 MCG/2 ML AMPUL ONE (10:28)
[2017-01-31] MEDS ORDERED: HYDROMORPHONE 1 MG/1 ML DISP.SYRIN ONE (10:51)
[2017-01-31] MEDS ORDERED: ONDANSETRON 4 MG/2 ML VIAL ONE (10:52)
[2017-01-31] MEDS ORDERED: IV D5W-0.45% NS +20 KCL 1,000 ML IV ONE (11:24)
[2017-01-31] MEDS ORDERED: MORPHINE SULFATE 2 MG/1 ML DISP.SYRIN IV PRN (11:30)
[2017-01-31 12:16] VITALS: BP 136/67
[2017-01-31] MEDS: POTASSIUM CHLORIDE 20 MEQ in IV D5 1/2 NS 1000 ML 1,000 ML IV PRN (14:06)
[2017-01-31] MEDS: MORPHINE SULFATE 4 MG/1 ML DISP.SYRIN IV PRN ×3 (14:24→18:46)
[2017-01-31 16:00] VITALS: BP 141/78
[2017-01-31] MEDS: CEFAZOLIN 1 G in PREMIXED 1 EACH IV SCH (16:38)
[2017-01-31] MEDS ORDERED: Medication Not On Formulary EA (Zolpidem Tartrate (Ambien) 10 MG) PO PRN (18:45)
--- NOTE | 2017-01-31 19:45 | NUR ---
RECEIVED PATIENT IN BED COMFORTABLE. VISITOR AT BEDSIDE. ALERT AND ORIENTED TIMES 4. S/P RIGHT SHOULD DOLORES ARTHROPLASTY. ICE PACK IN PLACE. PLACE IN A POSITION OF COMFORT. SAFETY INITIATED. CALL LIGHT WITHIN REACH. NO SIGNS OF DISTRESS NOTED. ON O2 2LPM VIA NC. WILL CONTINUE TO MONITOR.
--- NOTE | 2017-01-31 19:46 | NUR ---
Pt is laying in bed comfortably. No s/s of respiratory distress noted. 2L NC. No pain noted. DVT pumps on, incentive spirometer provided and within the reach, education provided in regards of the use, ice packs on the operated shoulder. IV is infusing. All safety needs are met. No discharge noted on the wound dressing.
[2017-01-31 20:00] VITALS: BP 135/76
[2017-01-31] MEDS: ATORVASTATIN 20 MG TABLET PO SCH (20:17)
[2017-01-31] MEDS: FERROUS SULFATE 325 MG TABEC PO SCH (20:18)
[2017-01-31] MEDS: SUCRALFATE 1 G TABLET PO SCH (20:18)
--- NOTE | 2017-01-31 20:42 | NUR ---
SEEN BY DR. DAVILA. PLEASE SEE NOTES.
[2017-01-31] MEDS: HYDROMORPHONE 1 MG/1 ML DISP.SYRIN IV PRN (21:08)
[2017-01-31] MEDS: MORPHINE SULFATE SR 15 MG TABLET.SA PO SCH (22:26)
[2017-02-01] MEDS: HYDROMORPHONE 1 MG/1 ML DISP.SYRIN IV PRN ×7 (00:11→21:38)
[2017-02-01] MEDS: CEFAZOLIN 1 G in PREMIXED 1 EACH IV SCH (00:11)
[2017-02-01 04:10] VITALS: BP 144/73
[2017-02-01] MEDS: POTASSIUM CHLORIDE 20 MEQ in IV D5 1/2 NS 1000 ML 1,000 ML IV PRN ×2 (04:58→21:37)
[2017-02-01] MEDS: MORPHINE SULFATE SR 15 MG TABLET.SA PO SCH ×3 (06:00→23:00)
[2017-02-01] MEDS: ONDANSETRON 4 MG/2 ML VIAL IV PRN (06:16)
[2017-02-01] MEDS: PANTOPRAZOLE SODIUM 40 MG TABLET.DR PO SCH ×2 (06:31→16:34)
--- NOTE | 2017-02-01 06:49 | NUR ---
PATIENT SLEPT INTERMITTENTLY THROUGHOUT THE NIGHT. NO ACUTE DISTRESS NOTED AT THIS TIME. FREQUENTLY ASKS FOR PAIN MEDICATIONS. GIVEN ORDERED. STATED RELIEF. ALL MEDS GIVEN ORDERED. ALL NEEDS MET. DRESSING RIGHT SHOULDER DRY AND INTACT. CALL LIGHT WITHIN REACH.
[2017-02-01 08:53] LABS: BASOPHILS % (AUTO) 0.1 % (0.0-2.0); EOSINOPHILS # (AUTO) 0.1 K/uL (0.0-0.7); EOSINOPHILS % (AUTO) 0.6 % (0.0-7.0); HEMATOCRIT 30.6 % (37-47); HEMOGLOBIN 9.8 G/DL (12.0-16.0); LYMPHOCYTES % (AUTO) 8.3 % (20.5-51.5); MEAN CORPUSCULAR HEMOGLOBIN 25.8 UUG (27.0-31.0); MEAN CORPUSCULAR HGB CONC 32 g/dL (32.0-37.0); MEAN CORPUSCULAR VOLUME 80.2 FL (81.0-99.0); MONOCYTES # (AUTO) 1.2 K/UL (0.1-1.30); MONOCYTES % (AUTO) 10.3 % (0.0-11.0); NEUTROPHILS # (AUTO) 9.5 K/UL (1.8-8.9); NEUTROPHILS % (AUTO) 80.7 % (38.5-71.5); PLATELET COUNT (AUTO) 390 K/UL (150-450); RED BLOOD CELL COUNT(AUTO) 3.82 MIL/UL (4.2-5.4)
[2017-02-01] MEDS: DILTIAZEM HCL CD 180 MG CAP.SR.24H PO SCH ×2 (09:00→16:32)
[2017-02-01] MEDS ORDERED: [UNRECOGNIZED DRUG - OTHER] PO SCH (09:00)
[2017-02-01] MEDS: FERROUS SULFATE 325 MG TABEC PO SCH ×2 (09:00→20:30)
[2017-02-01] MEDS ORDERED: Medication Not On Formulary EA (Gabapentin 600 MG) PO SCH (09:00)
[2017-02-01] MEDS: PAROXETINE HCL 20 MG TABLET PO SCH (09:00)
[2017-02-01] MEDS: MODAFINIL 100 MG TABLET PO SCH (09:00)
[2017-02-01] MEDS: SUCRALFATE 1 G TABLET PO SCH ×4 (09:00→20:30)
[2017-02-01] MEDS: GABAPENTIN 300 MG CAPSULE PO SCH ×3 (09:00→16:31)
[2017-02-01] MEDS: VENLAFAXINE XR 75 MG CAP.SR.24H PO SCH (09:00)
[2017-02-01 09:01] LABS: BILIRUBIN,TOTAL 0.3 mg/dL (0.2-1.0); CREATININE 0.7 mg/dL (0.6-1.3); MAGNESIUM 1.8 mg/dL (1.8-2.4); PHOSPHOROUS 3.9 mg/dL (2.5-4.9); POTASSIUM 4.1 mmol/L (3.5-5.1); TOTAL PROTEIN, SERUM 5.8 g/dL (6.4-8.2)
[2017-02-01 09:05] LABS: WHITE BLOOD COUNT (AUTO) 11.8 K/UL (4.0-11.2)
[2017-02-01 12:04] VITALS: BP 135/90
[2017-02-01] MEDS: LORAZEPAM 1 MG TABLET PO PRN ×2 (12:31→20:40)
[2017-02-01 16:04] VITALS: BP 159/78
--- NOTE | 2017-02-01 19:35 | NUR ---
PT RECEIVED IN BED, COMFORTABLE. A/OX4. ABLE TO MAKE NEEDS KNOWN. V/S STABLE. NO SIGNS OF ACUTE DISTRESS. NO COMPLAINTS OF PAIN AT THIS TIME. SAFETY MEASURES IMPLEMENTED. CALL LIGHT WITHIN REACH. WILL CONTINUE TO MONITOR.
[2017-02-01 20:00] VITALS: BP 131/71
[2017-02-01] MEDS: ATORVASTATIN 20 MG TABLET PO SCH (20:30)
[2017-02-01] MEDS: ACETAMINOPHEN 325 MG TABLET PO PRN (20:40)
[2017-02-01] MEDS: Z GUARD REMEDY PASTE 57 GM TUBE TOP SCH (21:44)
[2017-02-01] MEDS: ZOLPIDEM 5 MG TABLET PO PRN (22:55)
[2017-02-02] MEDS: HYDROMORPHONE 1 MG/1 ML DISP.SYRIN IV PRN ×6 (05:10→22:40)
[2017-02-02 05:12] VITALS: BP 139/73
--- NOTE | 2017-02-02 05:28 | NUR ---
PT SLEPT WELL THROUGHOUT SHIFT. V/S STABLE. NO SIGNS OF ACUTE DISTRESS. REQUEST PAIN MEDICATION THROUGHOUT SHIFT. GIVEN ORDERED. VERBALIZED RELIEF. NEEDS ATTENDED. SAFETY MAINTAINED. CALL LIGHT WITHIN REACH.
[2017-02-02] MEDS: MORPHINE SULFATE SR 15 MG TABLET.SA PO SCH ×3 (06:14→22:08)
[2017-02-02] MEDS: PANTOPRAZOLE SODIUM 40 MG TABLET.DR PO SCH ×2 (06:14→17:18)
--- NOTE | 2017-02-02 07:10 | NUR ---
RECEIVED PATIENT FROM ANGIOGRAPHY TECHNOLOGIST, BED IN LOW POSITION, SIDE RAILS UP X2
[2017-02-02] MEDS: Z GUARD REMEDY PASTE 57 GM TUBE TOP SCH ×2 (09:01→20:26)
[2017-02-02] MEDS: VENLAFAXINE XR 75 MG CAP.SR.24H PO SCH (09:01)
[2017-02-02] MEDS: GABAPENTIN 300 MG CAPSULE PO SCH ×3 (09:01→17:18)
[2017-02-02] MEDS: FERROUS SULFATE 325 MG TABEC PO SCH ×2 (09:01→20:20)
[2017-02-02] MEDS: PAROXETINE HCL 20 MG TABLET PO SCH (09:01)
[2017-02-02] MEDS: SUCRALFATE 1 G TABLET PO SCH ×4 (09:02→20:20)
[2017-02-02] MEDS: DILTIAZEM HCL CD 180 MG CAP.SR.24H PO SCH (09:02)
[2017-02-02] MEDS: MODAFINIL 100 MG TABLET PO SCH (09:02)
[2017-02-02] MEDS: POTASSIUM CHLORIDE 20 MEQ in IV D5 1/2 NS 1000 ML 1,000 ML IV PRN (11:41)
--- NOTE | 2017-02-02 12:00 | NUR ---
Patient got up with PT, tolerated well. No S/S of distress noted.
[2017-02-02 12:05] VITALS: BP 103/57
[2017-02-02 16:22] VITALS: BP 110/59
--- NOTE | 2017-02-02 18:32 | NUR ---
Patient has been asking for pain medication [id number] around the clock as she is stating that she has severe pain. Patient is in bed, no s/s of discomfort or distress, no SOB, bed in low position, side rails upx2
--- NOTE | 2017-02-02 19:35 | NUR ---
PT RECEIVED IN BED, AWAKE. ABLE TO MAKE NEEDS KNOWN. V/S STABLE. NO SIGNS OF ACUTE DISTRESS. NO COMPLAINTS OF PAIN AT THIS TIME. SAFETY MEASURE IMPLEMENTED. CALL LIGHT WITHIN IN REACH. WILL CONTINUE TO MONITOR.
[2017-02-02 20:00] VITALS: BP 116/56
[2017-02-02] MEDS: ATORVASTATIN 20 MG TABLET PO SCH (20:20)
[2017-02-02] MEDS: MAGNESIUM HYDROXIDE 30 ML LIQUID UDC PO PRN (20:22)
[2017-02-02] MEDS: ACETAMINOPHEN 325 MG TABLET PO PRN (22:13)
[2017-02-02] MEDS: ZOLPIDEM 5 MG TABLET PO PRN (23:35)
[2017-02-03] VITALS (9 sets, daily range): BP systolic 107–126; BP diastolic 57–66
[2017-02-03] MEDS: POTASSIUM CHLORIDE 20 MEQ in IV D5 1/2 NS 1000 ML 1,000 ML IV PRN ×2 (01:26→16:00)
[2017-02-03] MEDS: HYDROMORPHONE 1 MG/1 ML DISP.SYRIN IV PRN ×2 (01:33→04:45)
[2017-02-03] MEDS: LORAZEPAM 1 MG TABLET PO PRN (03:22)
--- NOTE | 2017-02-03 06:00 | NUR ---
END OF SHIFT NOTES. PT SLEPT WELL THROUGHOUT SHIFT. V/S STABLE. NO SIGNS OF ACUTE DISTRESS. PAIN MEDICATIONS ADMINISTERED ORDERED. PT VERBALIZED RELIEF OF PAIN. IVF INFUSING. SAFETY MAINTAINED. CALL LIGHT WITHIN REACH.
[2017-02-03] MEDS: MORPHINE SULFATE SR 15 MG TABLET.SA PO SCH ×2 (06:13→13:55)
[2017-02-03] MEDS: PANTOPRAZOLE SODIUM 40 MG TABLET.DR PO SCH ×2 (06:14→17:05)
[2017-02-03 06:43] LABS: BASOPHILS % (AUTO) 0.6 % (0.0-2.0); EOSINOPHILS # (AUTO) 0.4 K/uL (0.0-0.7); EOSINOPHILS % (AUTO) 4.7 % (0.0-7.0); HEMOGLOBIN 8.5 G/DL (12.0-16.0); LYMPHOCYTES # (AUTO) 1.5 K/UL (0.8-4.8); LYMPHOCYTES % (AUTO) 19.5 % (20.5-51.5); MEAN CORPUSCULAR HEMOGLOBIN 25.3 UUG (27.0-31.0); MEAN CORPUSCULAR HGB CONC 32 g/dL (32.0-37.0); MEAN CORPUSCULAR VOLUME 80.4 FL (81.0-99.0); MONOCYTES % (AUTO) 13.2 % (0.0-11.0); PLATELET COUNT (AUTO) 358 K/UL (150-450)
[2017-02-03 06:46] LABS: CREATININE 0.8 mg/dL (0.6-1.3); PHOSPHOROUS 3.2 mg/dL (2.5-4.9); POTASSIUM 4.3 mmol/L (3.5-5.1)
[2017-02-03 07:07] LABS: RED BLOOD CELL COUNT(AUTO) 3.36 MIL/UL (4.2-5.4); WHITE BLOOD COUNT (AUTO) 7.9 K/UL (4.0-11.2)
[2017-02-03] MEDS: DILTIAZEM HCL CD 180 MG CAP.SR.24H PO SCH (09:57)
[2017-02-03] MEDS: SUCRALFATE 1 G TABLET PO SCH ×3 (09:57→20:20)
[2017-02-03] MEDS: FERROUS SULFATE 325 MG TABEC PO SCH ×2 (09:57→20:20)
[2017-02-03] MEDS: VENLAFAXINE XR 75 MG CAP.SR.24H PO SCH (09:57)
[2017-02-03] MEDS: GABAPENTIN 300 MG CAPSULE PO SCH ×3 (09:58→17:06)
[2017-02-03] MEDS: Z GUARD REMEDY PASTE 57 GM TUBE TOP SCH ×2 (09:58→21:53)
[2017-02-03] MEDS: PAROXETINE HCL 20 MG TABLET PO SCH (09:58)
[2017-02-03] MEDS: MODAFINIL 100 MG TABLET PO SCH (09:58)
[2017-02-03 12:10] LABS: IRON, SERUM 13 ug/dL (50-175)
[2017-02-03] MEDS: HYDROMORPHONE 2 MG/1 ML DISP.SYRIN IV PRN ×2 (17:15→21:04)
[2017-02-03] MEDS: ACETAMINOPHEN 325 MG TABLET PO SCH (17:58)
--- NOTE | 2017-02-03 19:30 | NUR ---
RECEIVED PATIENT LAYING IN BED. HOB ELEVATED. NO SIGNS OF DISTRESS NOTED. PATIENT IS ALERT AND ORIENTED TIMES 4. SHE IS ABLE TO MAKE NEEDS KNOWN. SAFETY INITIATED. CALL LIGHT WITHIN REACH.
[2017-02-03] MEDS: ATORVASTATIN 20 MG TABLET PO SCH (20:20)
--- NOTE | 2017-02-03 21:35 | NUR ---
1 UNIT OF pRBC STARTED. VS STABLE. WILL CONTINUE TO MONITOR.
--- NOTE | 2017-02-03 21:50 | NUR ---
BLOOD TRANSFUSING AT 100 ML/HR. VS STABLE WILL CONTINUE TO MONITOR.
[2017-02-03] MEDS ORDERED: MORPHINE SULFATE SR 15 MG TABLET.SA PO SCH (22:00)
[2017-02-03] MEDS: MORPHINE SULFATE SR 30 MG TABLET.SA PO SCH ×2 (22:32→23:32)
[2017-02-03] MEDS: ZOLPIDEM 5 MG TABLET PO PRN (23:20)
[2017-02-04 00:43] VITALS: BP 119/65
--- NOTE | 2017-02-04 00:47 | NUR ---
TRANSFUSION ENDED. PATIENT TOLERATED THE TRANSFUSION WELL. VS STABLE.
[2017-02-04] MEDS: HYDROMORPHONE 2 MG/1 ML DISP.SYRIN IV PRN ×5 (02:49→20:44)
[2017-02-04] MEDS: LORAZEPAM 1 MG TABLET PO PRN ×2 (03:14→23:12)
[2017-02-04 04:43] VITALS: BP 119/62
[2017-02-04] MEDS: ACETAMINOPHEN 325 MG TABLET PO SCH ×3 (05:18→22:18)
--- NOTE | 2017-02-04 06:21 | NUR ---
NOTED SKIN TEAR ON RIGHT BUTTOCKS. WOUND TX PROVIDED ORDERED. WILL ENCOURAGE TO TURN AND REPOSITION
[2017-02-04 06:41] LABS: BASOPHILS # (AUTO) 0.1 K/uL (0.0-8.0); EOSINOPHILS # (AUTO) 0.7 K/uL (0.0-0.7); EOSINOPHILS % (AUTO) 10.8 % (0.0-7.0); HEMATOCRIT 29.1 % (37-47); HEMOGLOBIN 9.2 G/DL (12.0-16.0); LYMPHOCYTES # (AUTO) 1.3 K/UL (0.8-4.8); LYMPHOCYTES % (AUTO) 19.2 % (20.5-51.5); MEAN CORPUSCULAR HEMOGLOBIN 25.5 UUG (27.0-31.0); MEAN CORPUSCULAR HGB CONC 32 g/dL (32.0-37.0); MEAN CORPUSCULAR VOLUME 80.6 FL (81.0-99.0); MONOCYTES # (AUTO) 0.7 K/UL (0.1-1.30); MONOCYTES % (AUTO) 10.7 % (0.0-11.0); NEUTROPHILS % (AUTO) 57.3 % (38.5-71.5); PLATELET COUNT (AUTO) 334 K/UL (150-450); RED BLOOD CELL COUNT(AUTO) 3.62 MIL/UL (4.2-5.4); WHITE BLOOD COUNT (AUTO) 6.8 K/UL (4.0-11.2)
[2017-02-04] MEDS: SUCRALFATE 1 G TABLET PO SCH ×4 (06:46→20:43)
[2017-02-04] MEDS: PANTOPRAZOLE SODIUM 40 MG TABLET.DR PO SCH ×2 (06:46→16:13)
[2017-02-04 06:56] LABS: CREATININE 0.7 mg/dL (0.6-1.3); MAGNESIUM 1.9 mg/dL (1.8-2.4); POTASSIUM 4.4 mmol/L (3.5-5.1)
--- NOTE | 2017-02-04 07:36 | NUR ---
PATIENT SLEPT INTERMITTENTLY THROUGHOUT THE NIGHT. DRESSING ON THE RIGHT SHOULDER CLEAN, DRY AND INTACT. NO ACUTE DISTRESS NOTED AT THIS TIME. FREQUENTLY ASKS FOR PAIN MEDICATIONS. STATED RELIEF. ALL DUE MEDS GIVEN ORDERED. SAFETY MAINTAINED THROUGHOUT THE NIGHT. CALL LIGHT WITHIN REACH.
[2017-02-04] MEDS: GABAPENTIN 300 MG CAPSULE PO SCH ×3 (08:24→16:13)
[2017-02-04] MEDS: PAROXETINE HCL 20 MG TABLET PO SCH (08:25)
[2017-02-04] MEDS: FERROUS SULFATE 325 MG TABEC PO SCH ×2 (08:25→20:43)
[2017-02-04] MEDS: VENLAFAXINE XR 37.5 MG CAP.SR.24H PO SCH (08:25)
[2017-02-04] MEDS: MODAFINIL 100 MG TABLET PO SCH (08:26)
[2017-02-04] MEDS: Z GUARD REMEDY PASTE 57 GM TUBE TOP SCH ×2 (08:26→20:48)
[2017-02-04] MEDS: DILTIAZEM HCL CD 180 MG CAP.SR.24H PO SCH (08:33)
[2017-02-04] MEDS: MORPHINE SULFATE SR 30 MG TABLET.SA PO SCH ×3 (08:48→22:18)
--- NOTE | 2017-02-04 08:49 | NUR ---
PT REQUESTING MS CONTIN, NOT SHOWING UP ON SCHEDULED MEDS, REVIEWED CHART AND LAST GIVEN WAS 2300 LAST NIGHT. IT IS SCHEDULED FOR Q8H, SPOKE TO PHARMACISTS [place] AND APPEARS ASSEMBLER MUSICAL EQUIPMENT SCANNED FOR 0600 AND 1400 FOR TODAYS SHIFT. REMOVED MEDICATION AND ADMINISTERED UNSCHEDULED.
[2017-02-04] MEDS ORDERED: VENLAFAXINE XR 75 MG CAP.SR.24H PO SCH ×2 (09:00)
[2017-02-04] MEDS: POTASSIUM CHLORIDE 20 MEQ in IV D5 1/2 NS 1000 ML 1,000 ML IV PRN (11:05)
[2017-02-04 11:51] VITALS: BP 110/65
[2017-02-04 15:26] VITALS: BP 125/63
[2017-02-04] MEDS: LACTULOSE 20 G/30 ML LIQUID UDC PO PRN (18:38)
--- NOTE | 2017-02-04 19:26 | NUR ---
NO CHANGES NOTED THROUGHOUT SHIFT, CALL LIGHT IN REACH
--- NOTE | 2017-02-04 19:30 | NUR ---
RECEIVED PATIENT LAYING IN BED COMFORTABLY. HOB ELEVATED. NO ACUTE DISTRESS NOTED. SAFETY INITIATED. CALL LIGHT WITHIN REACH.
[2017-02-04 20:00] VITALS: BP 131/70
[2017-02-04] MEDS: ATORVASTATIN 20 MG TABLET PO SCH (20:43)
[2017-02-04] MEDS: ZOLPIDEM 5 MG TABLET PO PRN (23:13)
[2017-02-05] MEDS: POTASSIUM CHLORIDE 20 MEQ in IV D5 1/2 NS 1000 ML 1,000 ML IV PRN (00:37)
[2017-02-05] MEDS: MORPHINE SULFATE SR 30 MG TABLET.SA PO SCH ×3 (05:03→22:52)
[2017-02-05] MEDS: ACETAMINOPHEN 325 MG TABLET PO SCH ×3 (05:04→22:53)
[2017-02-05] MEDS: MAGNESIUM HYDROXIDE 30 ML LIQUID UDC PO PRN ×2 (05:39→20:22)
[2017-02-05 06:40] VITALS: BP 150/73
[2017-02-05] MEDS: PANTOPRAZOLE SODIUM 40 MG TABLET.DR PO SCH ×2 (06:53→17:19)
[2017-02-05 07:36] LABS: MAGNESIUM 1.9 mg/dL (1.8-2.4)
--- NOTE | 2017-02-05 07:53 | NUR ---
PATIENT ENDORSED TO AM NURSE. PATIENT WAS SLEEPING COMFORTABLY. HOB ELEVATED. IV SITE BECAME INFILTRATED AT 0400. WAS NOT ABLE TO RE-INSERT IV DUE TO SWELLING ON THE LEFT ARM AND SX ON THE R SHOULDER. NO ACUTE DISTRESS NOTED. SAFETY WAS MAINTAINED THROUGHOUT THE NIGHT. ALL NEEDS MET. MEDICATIONS GIVEN ORDERED.
[2017-02-05 08:01] LABS: BASOPHILS % (AUTO) 0.6 % (0.0-2.0); EOSINOPHILS # (AUTO) 0.6 K/uL (0.0-0.7); EOSINOPHILS % (AUTO) 7.9 % (0.0-7.0); LYMPHOCYTES % (AUTO) 13.1 % (20.5-51.5); MEAN CORPUSCULAR HEMOGLOBIN 25.6 UUG (27.0-31.0); MEAN CORPUSCULAR HGB CONC 32 g/dL (32.0-37.0); MONOCYTES # (AUTO) 0.6 K/UL (0.1-1.30); NEUTROPHILS # (AUTO) 5.1 K/UL (1.8-8.9); NEUTROPHILS % (AUTO) 70.4 % (38.5-71.5); PLATELET COUNT (AUTO) 381 K/UL (150-450); WHITE BLOOD COUNT (AUTO) 7.3 K/UL (4.0-11.2)
[2017-02-05 08:13] LABS: HEMOGLOBIN 11.1 G/DL (12.0-16.0); RED BLOOD CELL COUNT(AUTO) 4.32 MIL/UL (4.2-5.4)
[2017-02-05] MEDS: SUCRALFATE 1 G TABLET PO SCH ×4 (08:58→20:23)
[2017-02-05] MEDS: DILTIAZEM HCL CD 180 MG CAP.SR.24H PO SCH (08:58)
[2017-02-05] MEDS: GABAPENTIN 300 MG CAPSULE PO SCH ×3 (08:59→17:19)
[2017-02-05] MEDS: FERROUS SULFATE 325 MG TABEC PO SCH ×2 (08:59→20:23)
[2017-02-05] MEDS: PAROXETINE HCL 20 MG TABLET PO SCH (08:59)
[2017-02-05] MEDS: MODAFINIL 100 MG TABLET PO SCH (09:00)
[2017-02-05] MEDS: Z GUARD REMEDY PASTE 57 GM TUBE TOP SCH ×2 (09:03→20:33)
[2017-02-05] MEDS: VENLAFAXINE XR 37.5 MG CAP.SR.24H PO SCH (09:03)
[2017-02-05 11:15] VITALS: BP 145/67
[2017-02-05] MEDS: LACTULOSE 20 G/30 ML LIQUID UDC PO PRN (13:02)
[2017-02-05] MEDS: ONDANSETRON 4 MG/2 ML VIAL IV PRN (13:06)
[2017-02-05] MEDS: HYDROMORPHONE 2 MG/1 ML DISP.SYRIN IV PRN ×3 (13:56→21:58)
[2017-02-05 15:17] VITALS: BP 133/70
--- NOTE | 2017-02-05 19:40 | NUR ---
PT RECEIVED IN BED, AWAKE. A/OX4. V/S STABLE. NO SIGNS OF ACUTE DISTRESS. NO COMPLAINTS OF PAIN AT THIS TIME. ABLE TO MAKE NEEDS KNOWN. SAFETY MEASURES IMPLEMENTED. CALL LIGHT WITHIN REACH. WILL CONTINUE TO MONITOR.
[2017-02-05 20:15] VITALS: BP 117/59
[2017-02-05] MEDS: ATORVASTATIN 20 MG TABLET PO SCH (20:23)
[2017-02-05] MEDS: ZOLPIDEM 5 MG TABLET PO PRN (22:53)
[2017-02-06] MEDS: HYDROMORPHONE 2 MG/1 ML DISP.SYRIN IV PRN ×3 (04:25→20:27)
[2017-02-06 04:50] VITALS: BP 118/58
[2017-02-06] MEDS: PANTOPRAZOLE SODIUM 40 MG TABLET.DR PO SCH ×2 (06:19→16:39)
[2017-02-06] MEDS: MORPHINE SULFATE SR 30 MG TABLET.SA PO SCH ×3 (06:19→21:59)
[2017-02-06] MEDS: SUCRALFATE 1 G TABLET PO SCH ×4 (06:20→20:27)
[2017-02-06] MEDS: ACETAMINOPHEN 325 MG TABLET PO SCH ×3 (06:20→21:58)
--- NOTE | 2017-02-06 06:31 | NUR ---
PT ASLEEP INTERMITTENTLY THROUGHOUT SHIFT. V/S STABLE. NO SIGNS OF ACUTE DISTRESS. COMPLAINTS OF PAIN 05/01. PAIN MEDICATIONS ADMINISTERED ORDERED. PT VERBALIZED RELIEF OF PAIN. NEEDS ATTENDED. SAFETY MAINTAINED. CALL LIGHT WITHIN REACH.
--- NOTE | 2017-02-06 07:30 | NUR ---
RECEIVED REPORT FROM FLIGHT PHYSICIAN NURSE, SAFETY CHECK, BED IN LOW POSITION, SIDE RAILS UP X2.
[2017-02-06] MEDS: PAROXETINE HCL 20 MG TABLET PO SCH (09:20)
[2017-02-06] MEDS: VENLAFAXINE XR 37.5 MG CAP.SR.24H PO SCH (09:21)
[2017-02-06] MEDS: GABAPENTIN 300 MG CAPSULE PO SCH ×3 (09:21→16:40)
[2017-02-06] MEDS: FERROUS SULFATE 325 MG TABEC PO SCH ×2 (09:21→20:27)
[2017-02-06] MEDS: MODAFINIL 100 MG TABLET PO SCH (09:21)
[2017-02-06] MEDS: DILTIAZEM HCL CD 180 MG CAP.SR.24H PO SCH (09:21)
[2017-02-06] MEDS: Z GUARD REMEDY PASTE 57 GM TUBE TOP SCH ×2 (09:28→20:52)
[2017-02-06 12:23] VITALS: BP 120/63
[2017-02-06] MEDS: POTASSIUM CHLORIDE 20 MEQ in IV D5 1/2 NS 1000 ML 1,000 ML IV PRN ×2 (15:41→20:41)
[2017-02-06 15:47] VITALS: BP 102/57
--- NOTE | 2017-02-06 18:51 | NUR ---
PATIENT HAS BEEN IN BED AND COMFORTABLE ALL DAY, INTERMITTENT WAKINGS, PATIENT CONTINUES TO REPORT SEVERE LEVELS OF PAIN, BUT VITALS AND PRESENTATION HAVE NO INDICATION OF PAIN. IV WAS DISLODGED AND LEAKING, REPLACED IV
--- NOTE | 2017-02-06 19:40 | NUR ---
PT RECEIVED IN BED, AWAKE. A/OX4. V/S STABLE. NO SIGNS OF ACUTE DISTRESS. PT COMPLAINS OF PAIN 7/10 AT THIS TIME. IVF HELD. IV SITE INFILTRATED. ABLE TO MAKE NEEDS KNOWN. SAFETY MEASURES IMPLEMENTED. CALL LIGHT WITHIN REACH. WILL CONTINUE TO MONITOR.
[2017-02-06 20:00] VITALS: BP 110/55
[2017-02-06] MEDS: ATORVASTATIN 20 MG TABLET PO SCH (20:27)
[2017-02-06] MEDS: MAGNESIUM HYDROXIDE 30 ML LIQUID UDC PO PRN (21:58)
[2017-02-06] MEDS: ZOLPIDEM 5 MG TABLET PO PRN (23:56)
[2017-02-07] MEDS: HYDROMORPHONE 2 MG/1 ML DISP.SYRIN IV PRN ×3 (00:25→08:58)
[2017-02-07] MEDS: LORAZEPAM 1 MG TABLET PO PRN (02:04)
--- NOTE | 2017-02-07 06:07 | NUR ---
END OF SHIFT NOTES. PT ASLEEP INTERMITTENTLY THROUGHOUT SHIFT. V/S STABLE. NO SIGNS OF ACUTE DISTRESS. COMPLAINS OF PAIN 8/10 ON RIGHT SHOULDER. PAIN MEDICATIONS ADMINISTERED ORDERED. IVF INFUSING. NEEDS ATTENDED. SAFETY MAINTAINED. CALL LIGHT WITHIN REACH.
[2017-02-07 06:37] VITALS: BP 112/63
[2017-02-07] MEDS: ACETAMINOPHEN 325 MG TABLET PO SCH (06:45)
[2017-02-07] MEDS: MORPHINE SULFATE SR 30 MG TABLET.SA PO SCH (06:45)
[2017-02-07] MEDS: SUCRALFATE 1 G TABLET PO SCH ×2 (06:46→12:15)
[2017-02-07] MEDS: PANTOPRAZOLE SODIUM 40 MG TABLET.DR PO SCH (06:46)
[2017-02-07 07:07] LABS: CREATININE 0.7 mg/dL (0.6-1.3); MAGNESIUM 2.3 mg/dL (1.8-2.4); PHOSPHOROUS 4.1 mg/dL (2.5-4.9); POTASSIUM 4.3 mmol/L (3.5-5.1)
--- NOTE | 2017-02-07 07:20 | NUR ---
RECEIVED REPORT FROM CUTTING TORCH OPERATOR, PATIENT IN BED SLEEPING, SAFETY CHECK, SIDE RAILS UPX2, BED IN LOW POSITION.
[2017-02-07 08:13] LABS: BASOPHILS # (AUTO) 0.1 K/uL (0.0-8.0); BASOPHILS % (AUTO) 0.8 % (0.0-2.0); EOSINOPHILS # (AUTO) 0.7 K/uL (0.0-0.7); EOSINOPHILS % (AUTO) 9.9 % (0.0-7.0); LYMPHOCYTES # (AUTO) 1.2 K/UL (0.8-4.8); LYMPHOCYTES % (AUTO) 17.2 % (20.5-51.5); MEAN CORPUSCULAR HEMOGLOBIN 25.2 UUG (27.0-31.0); MEAN CORPUSCULAR HGB CONC 31 g/dL (32.0-37.0); MEAN CORPUSCULAR VOLUME 81.4 FL (81.0-99.0); MONOCYTES # (AUTO) 0.7 K/UL (0.1-1.30); MONOCYTES % (AUTO) 9.4 % (0.0-11.0); NEUTROPHILS # (AUTO) 4.5 K/UL (1.8-8.9); NEUTROPHILS % (AUTO) 62.7 % (38.5-71.5); PLATELET COUNT (AUTO) 398 K/UL (150-450); WHITE BLOOD COUNT (AUTO) 7.2 K/UL (4.0-11.2)
[2017-02-07 08:21] LABS: HEMATOCRIT 30.5 % (37-47); HEMOGLOBIN 9.4 G/DL (12.0-16.0); RED BLOOD CELL COUNT(AUTO) 3.75 MIL/UL (4.2-5.4)
[2017-02-07] MEDS: MODAFINIL 100 MG TABLET PO SCH (08:55)
[2017-02-07] MEDS: GABAPENTIN 300 MG CAPSULE PO SCH ×2 (08:55→12:18)
[2017-02-07] MEDS: VENLAFAXINE XR 37.5 MG CAP.SR.24H PO SCH (08:56)
[2017-02-07] MEDS: FERROUS SULFATE 325 MG TABEC PO SCH (08:56)
[2017-02-07] MEDS: DILTIAZEM HCL CD 180 MG CAP.SR.24H PO SCH (08:56)
[2017-02-07] MEDS: PAROXETINE HCL 20 MG TABLET PO SCH (08:56)
[2017-02-07] MEDS: Z GUARD REMEDY PASTE 57 GM TUBE TOP SCH (08:59)
[2017-02-07] MEDS: POTASSIUM CHLORIDE 20 MEQ in IV D5 1/2 NS 1000 ML 1,000 ML IV PRN (09:08)
--- NOTE | 2017-02-07 11:00 | NUR ---
PATIENT GOT UP WITH PHYSICAL THERAPY. TOLERATED WELL.
[2017-02-07] MEDS ORDERED: MORP30TA59 PO (11:17)
[2017-02-07] MEDS ORDERED: HYDR2DIS IV (11:20)
[2017-02-07] MEDS ORDERED: VENL37.55 PO (11:20)
[2017-02-07 12:05] VITALS: BP 117/59
--- NOTE | 2017-02-07 13:40 | NUR ---
REPORT GIVEN TO ARU STAFF, PATIENT TRANSFERRED. PATIENT IS STABLE, NO SOB, NO ACUTE CONCERNS AT TIME OF TRANSFER.
[2017-02-08] MEDS ORDERED: FERR325T28 PO (07:41)
== END 2017-02-07 13:55 | DRG 483 ==
LOC: SURGERY 06:21 → MED 11:19
PROVIDERS: ADMIT Internal Medicine; ATTEND Orthopaedic Surgery Sports Medicine
PROC: 0PW Upper Bones, Revision (ICD-10-PCS; principal; 2017-02-01)
PROC: 0RRJ0J6 Replacement of Right Shoulder Joint with Synthetic Substitute, Humeral Surface, Open Approach (ICD-10-PCS; 2017-02-01)
PROC: BW1JYZZ Fluoroscopy of Upper Extremity using Other Contrast (ICD-10-PCS; 2017-02-01)
PROC: 30233N1 Transfusion of Nonautologous Red Blood Cells into Peripheral Vein, Percutaneous Approach (ICD-10-PCS; 2017-02-03)
DX: S42.201A Unspecified fracture of upper end of right humerus, initial encounter for closed fracture (principal); E43 Unspecified severe protein-calorie malnutrition; F10.239 Alcohol dependence with withdrawal, unspecified; E87.1 Hypo-osmolality and hyponatremia; F11.20 Opioid dependence, uncomplicated; S42.201K Unspecified fracture of upper end of right humerus, subsequent encounter for fracture with nonunion; I48.0 Paroxysmal atrial fibrillation; E87.6 Hypokalemia; Y90.0 Blood alcohol level of less than 20 mg/100 ml; J44.9 Chronic obstructive pulmonary disease, unspecified; R29.6 Repeated falls; E66.9 Obesity, unspecified; J45.909 Unspecified asthma, uncomplicated; Z68.36 Body mass index [BMI] 36.0-36.9, adult; M19.90 Unspecified osteoarthritis, unspecified site; G89.29 Other chronic pain; G62.9 Polyneuropathy, unspecified; E55.9 Vitamin D deficiency, unspecified; E78.5 Hyperlipidemia, unspecified; F31.9 Bipolar disorder, unspecified; Z86.73 Personal history of transient ischemic attack (TIA), and cerebral infarction without residual deficits; Z96.642 Presence of left artificial hip joint; Z87.891 Personal history of nicotine dependence; M51.36 Other intervertebral disc degeneration, lumbar region; M97.31XD Periprosthetic fracture around internal prosthetic right shoulder joint, subsequent encounter; Z96.611 Presence of right artificial shoulder joint; W19.XXXD Unspecified fall, subsequent encounter; Z91.81 History of falling; D50.9 Iron deficiency anemia, unspecified; R19.5 Other fecal abnormalities; R33.9 Retention of urine, unspecified; K59.00 Constipation, unspecified; M81.0 Age-related osteoporosis without current pathological fracture
CPT/HCPCS: 36415; 73020; 76000; 83550; 83735; 84100; 85025; 86850; 86900; 86901; 86920; 87040; 92523; 97110; 97116; 97161; 97165; 97530; A4217; A4565; A4649; J0690; J1100; J1170; J2270; J2405; J3010; J3480; J3490; J7030; J7050; P9016-BL; P9021

== ENCOUNTER 2017-02-03 07:32 | Inpatient (IN) | payer MEDICARE, OTHER ==
[~2017-02-03] VITALS: Ht 162.6 cm; Wt 86.2 kg
[~2017-02-03 07:32] MED LIST changes: -TAMS0.4C34 PO
[2017-02-07] MEDS ORDERED: MORP30TA59 PO (11:17)
[2017-02-07] MEDS ORDERED: HYDR2DIS IV (11:20)
[2017-02-07] MEDS ORDERED: VENL37.55 PO (11:20)
[2017-02-07 14:00] VITALS: BP 127/63
--- NOTE | 2017-02-07 14:30 | NUR ---
Received this direct admission from Med Surg per wheelchair, this 66 yo female, with the diagnosis of right humerus fracture, S/P ORIF by Dr. Walls on 01/31/17. Transferred to bed comfortably. Routine admission care rendered. Awake, alert oriented x 4, limited movement of RUE, supported with sling. Saline lock to left upper arm intact. Right shoulder incision with bisi, clean and dry, dressing changed. Photos taken of skin breakdown.
[2017-02-07 14:35] VITALS: BP 127/63
[2017-02-07] MEDS ORDERED: MORPHINE SULFATE IR 30 MG TABLET PO PRN (15:00)
[2017-02-07] MEDS ORDERED: ZOLPIDEM 5 MG TABLET PO SCH (15:00)
[2017-02-07] MEDS ORDERED: LORAZEPAM 1 MG TABLET PO PRN (15:00)
--- NOTE | 2017-02-07 15:10 | NUR ---
Attempted to reach Dr. Loraine Grey via [facility] hotline. Successfully spoke to Dr. Grey regarding medication reconciliation, was told she would complete it in 30-45 min. Communicated and made RN taking care of patient aware. No other needs at this time.
[2017-02-07] MEDS ORDERED: PANTOPRAZOLE SODIUM 40 MG TABLET.DR PO SCH (16:30)
[2017-02-07] MEDS ORDERED: SUCRALFATE 1 G TABLET PO SCH ×2 (17:00→21:00)
[2017-02-07] MEDS ORDERED: GABAPENTIN 300 MG CAPSULE PO SCH (17:00)
--- NOTE | 2017-02-07 18:42 | NUR ---
CN placed another call to Dr. Loraine Grey, follow up for admission orders/medication reconciliation. Endorsed for further care and follow up.
--- NOTE | 2017-02-07 19:15 | NUR ---
RECEIVED SBAR REPORT AST THE BEDSIDE. PT WATCHING TV HOB AT 15%. PT A/O X4, PLEASENT
[2017-02-07 20:00] VITALS: BP 131/70
[2017-02-07] MEDS ORDERED: ATORVASTATIN 20 MG TABLET PO SCH (21:00)
[2017-02-07] MEDS ORDERED: HYDROMORPHONE 2 MG/1 ML DISP.SYRIN IV PRN (21:15)
[2017-02-07] MEDS: ATORVASTATIN 20 MG TABLET PO SCH (21:46)
[2017-02-07] MEDS: MORPHINE SULFATE SR 15 MG TABLET.SA PO SCH (22:00)
[2017-02-07] MEDS: MORPHINE SULFATE SR 30 MG TABLET.SA PO SCH (22:00)
[2017-02-07] MEDS: LORAZEPAM 1 MG TABLET PO PRN (23:23)
[2017-02-08] MEDS: ZOLPIDEM 5 MG TABLET PO PRN ×2 (00:44→23:19)
[2017-02-08] MEDS ORDERED: ZOLPIDEM 5 MG TABLET ONE (00:53)
[2017-02-08] MEDS: MORPHINE SULFATE SR 15 MG TABLET.SA PO SCH (06:00)
[2017-02-08] MEDS: MORPHINE SULFATE SR 30 MG TABLET.SA PO SCH ×3 (06:42→22:02)
[2017-02-08] MEDS: PANTOPRAZOLE SODIUM 40 MG TABLET.DR PO SCH ×2 (06:42→17:27)
--- NOTE | 2017-02-08 06:43 | NUR ---
ONLY MS CONTIN 30 MG PO WAS GIVEN. 15 MG PO MS CONTIN NOT GIVEN D/T PATIENT FALLS ASLEEP TOO EASILY THIS MORNING. RESPIRATIONS EVEN AND WITHOUT RESPIRATORY DISTRESS AT PRESENT.
[2017-02-08 06:52] VITALS: BP 125/66
--- NOTE | 2017-02-08 07:19 | NUR ---
BEDSIDE SBAR REPORT TO CRISTOBAL CORNELIUS. PT SLEPT WELL, CONTINUE PLAN OF CARE.
[2017-02-08] MEDS ORDERED: FERR325T28 PO (07:41)
[2017-02-08 08:00] VITALS: BP 142/68
--- NOTE | 2017-02-08 08:00 | NUR ---
Sleeping, on moderate high back rest. RUE on sling.
[2017-02-08] MEDS ORDERED: PAROXETINE HCL 20 MG TABLET PO SCH (09:00)
[2017-02-08] MEDS ORDERED: GABAPENTIN 300 MG CAPSULE PO SCH (09:00)
[2017-02-08] MEDS ORDERED: MODAFINIL 100 MG TABLET PO SCH (09:00)
[2017-02-08] MEDS ORDERED: VENLAFAXINE 75 MG TABLET PO SCH (09:00)
[2017-02-08] MEDS ORDERED: FERROUS GLUCONATE 324 MG TABLET PO SCH ×2 (09:00)
[2017-02-08] MEDS ORDERED: DILTIAZEM HCL 90 MG TABLET PO SCH (09:00)
[2017-02-08] MEDS ORDERED: VENLAFAXINE XR 75 MG CAP.SR.24H PO SCH (09:00)
[2017-02-08] MEDS: VENLAFAXINE XR 37.5 MG CAP.SR.24H PO SCH (09:07)
[2017-02-08] MEDS: MODAFINIL 100 MG TABLET PO SCH (09:07)
[2017-02-08] MEDS: PAROXETINE HCL 20 MG TABLET PO SCH (09:07)
[2017-02-08] MEDS: DILTIAZEM HCL CD 180 MG CAP.SR.24H PO SCH (09:11)
[2017-02-08] MEDS: SUCRALFATE 1 G TABLET PO SCH ×3 (12:17→20:54)
[2017-02-08] MEDS: OXYCODONE HCL 5 MG TABLET PO PRN ×2 (12:18→18:33)
[2017-02-08] MEDS ORDERED: MORPHINE SULFATE SR 15 MG TABLET.SA PO SCH (14:00)
--- NOTE | 2017-02-08 14:01 | NUR ---
WOUND CARE CONSULT: PT PRESENTS WITH RT SHOULDER SURGICAL DRESSING WHICH IS DRY AND INTACT WITH DEYSI. RECOMMEND SURGICAL FOLLOW UP. PT GETS UP TO AMBULATE AND SITS IN CHAIR WITH ASSISTANCE. PT HAS RT ARM SLING. EXCORIATION NOTED TO RT BUTTOCK. RECOMMENDATIONS MADE FOR SKIN CARE AND PROTECTION. DISCUSSED WITH NURSING STAFF. KEMI SCORE CURRENTLY 18. WILL SEE PRN. MCCOLLUM IN AGREEMENT WITH PLAN OF CARE. Addendum: 02/08/17 at 1404 by NINO BOX RN Amended: Links added.
[2017-02-08] MEDS ORDERED: MAGNESIUM CITRATE 296 ML BOTTLE PO ONE (15:15)
[2017-02-08] MEDS ORDERED: BISACODYL 10 MG SUPP.RECT RC ONE (15:15)
[2017-02-08] MEDS: GABAPENTIN 300 MG CAPSULE PO SCH (17:27)
--- NOTE | 2017-02-08 18:39 | NUR ---
No BM for 9 days, Mag Citrate po and Dulcolax suppository given, with large BM after. Oxy IR po given as ordered for pain. Repositioned comfortably in bed.
--- NOTE | 2017-02-08 20:00 | NUR ---
RECEIVED PATIENT AWAKE IN BED. A/O X4. PLEASANT WHEN APPROACHED. SLING NOTED TO RIGHT ARM/SHOULDER, ELEVATED ON PILLOWS. C/O DISCOMFORT 01/29. NO RESP. DISTRESS NOTED. BED ALARM ON. CALL LIGHT IN REACH. ALL NEEDS ATTENDED. WILL CONTINUE TO MONITOR.
[2017-02-08] MEDS: ATORVASTATIN 20 MG TABLET PO SCH (20:54)
[2017-02-08] MEDS: FERROUS SULFATE 325 MG TABEC PO SCH (20:54)
[2017-02-08] MEDS: DOCUSATE SODIUM 100 MG CAPSULE PO SCH (20:54)
[2017-02-08 21:13] VITALS: BP 125/55
[2017-02-08] MEDS: LORAZEPAM 1 MG TABLET PO PRN (22:02)
[2017-02-09] MEDS: PANTOPRAZOLE SODIUM 40 MG TABLET.DR PO SCH ×2 (06:08→16:12)
[2017-02-09] MEDS: MORPHINE SULFATE SR 30 MG TABLET.SA PO SCH ×3 (06:11→21:15)
--- NOTE | 2017-02-09 06:33 | NUR ---
PATIENT AWAKE IN BED. C/O PAIN. GIVEN ROUTINE MS CONTIN. PAIN 02/28. SLEPT AT INTERVALS. PATIENT HAD 2 LOOSE MB. BED ALARM ON. CALL LIGHT IN REACH. ALL NEEDS ATTENDED. WILL CONTINUE.
[2017-02-09] MEDS: SUCRALFATE 1 G TABLET PO SCH ×4 (06:44→21:15)
[2017-02-09 08:00] VITALS: BP 120/64
[2017-02-09 08:34] LABS: BASOPHILS # (AUTO) 0.1 K/uL (0.0-8.0); BASOPHILS % (AUTO) 1.1 % (0.0-2.0); EOSINOPHILS # (AUTO) 0.3 K/uL (0.0-0.7); EOSINOPHILS % (AUTO) 5.8 % (0.0-7.0); HEMATOCRIT 32.1 % (37-47); LYMPHOCYTES # (AUTO) 1.1 K/UL (0.8-4.8); LYMPHOCYTES % (AUTO) 19.5 % (20.5-51.5); MEAN CORPUSCULAR HEMOGLOBIN 25.4 UUG (27.0-31.0); MEAN CORPUSCULAR HGB CONC 31 g/dL (32.0-37.0); MEAN CORPUSCULAR VOLUME 81.3 FL (81.0-99.0); MONOCYTES # (AUTO) 0.6 K/UL (0.1-1.30); MONOCYTES % (AUTO) 10.3 % (0.0-11.0); NEUTROPHILS # (AUTO) 3.4 K/UL (1.8-8.9); NEUTROPHILS % (AUTO) 63.3 % (38.5-71.5); PLATELET COUNT (AUTO) 399 K/UL (150-450); RED BLOOD CELL COUNT(AUTO) 3.95 MIL/UL (4.2-5.4); WHITE BLOOD COUNT (AUTO) 5.5 K/UL (4.0-11.2)
[2017-02-09] MEDS: MODAFINIL 100 MG TABLET PO SCH (08:53)
[2017-02-09] MEDS: OXYCODONE HCL 5 MG TABLET PO PRN ×2 (08:54→18:42)
[2017-02-09 09:08] LABS: CREATININE 0.7 mg/dL (0.6-1.3); MAGNESIUM 2.2 mg/dL (1.8-2.4); PHOSPHOROUS 4.2 mg/dL (2.5-4.9); POTASSIUM 3.9 mmol/L (3.5-5.1)
[2017-02-09] MEDS: GABAPENTIN 300 MG CAPSULE PO SCH ×3 (13:00→16:12)
[2017-02-09] MEDS: FERROUS SULFATE 325 MG TABEC PO SCH ×2 (13:17→21:15)
[2017-02-09] MEDS: VENLAFAXINE XR 37.5 MG CAP.SR.24H PO SCH (13:18)
[2017-02-09] MEDS: PAROXETINE HCL 20 MG TABLET PO SCH (13:21)
[2017-02-09] MEDS: DILTIAZEM HCL CD 180 MG CAP.SR.24H PO SCH (13:22)
--- NOTE | 2017-02-09 14:56 | NUR ---
TEAM CONFERENCE MEETING 02/09/17
[2017-02-09] MEDS ORDERED: BISACODYL 10 MG SUPP.RECT RC PRN (15:15)
[2017-02-09] MEDS ORDERED: MAGNESIUM CITRATE 296 ML BOTTLE PO ONE (20:00)
[2017-02-09 21:11] VITALS: BP 100/63
[2017-02-09] MEDS: ATORVASTATIN 20 MG TABLET PO SCH (21:16)
[2017-02-09] MEDS: DOCUSATE SODIUM 100 MG CAPSULE PO SCH (21:16)
[2017-02-09] MEDS: ZOLPIDEM 5 MG TABLET PO PRN (23:09)
[2017-02-10] MEDS: MORPHINE SULFATE SR 30 MG TABLET.SA PO SCH ×3 (05:53→22:04)
[2017-02-10] MEDS: PANTOPRAZOLE SODIUM 40 MG TABLET.DR PO SCH ×2 (06:31→17:13)
[2017-02-10] MEDS: SUCRALFATE 1 G TABLET PO SCH ×4 (06:31→21:00)
[2017-02-10 08:00] VITALS: BP 113/76
[2017-02-10] MEDS: SENNOSIDES/DOCUSATE SODIUM TABLET PO SCH (11:39)
[2017-02-10] MEDS: FERROUS SULFATE 325 MG TABEC PO SCH ×2 (11:39→22:05)
[2017-02-10] MEDS: MODAFINIL 100 MG TABLET PO SCH (11:39)
[2017-02-10] MEDS: DILTIAZEM HCL CD 180 MG CAP.SR.24H PO SCH (11:40)
[2017-02-10] MEDS: VENLAFAXINE XR 37.5 MG CAP.SR.24H PO SCH (11:40)
[2017-02-10] MEDS: GABAPENTIN 300 MG CAPSULE PO SCH ×3 (11:41→17:13)
[2017-02-10] MEDS: OXYCODONE HCL 5 MG TABLET PO PRN ×3 (11:41→23:29)
[2017-02-10] MEDS: PAROXETINE HCL 20 MG TABLET PO SCH (11:42)
[2017-02-10] MEDS: LORAZEPAM 1 MG TABLET PO PRN (11:42)
--- NOTE | 2017-02-10 19:00 | NUR ---
END DAILY NOTES IN BED RESTING QUIETLY. MEDICATED FOR PAIN ORDERED. IN NO ACUTE DISTRESS PERICARE GIVEN BM X 1 TODAY.
[2017-02-10 21:50] VITALS: BP 126/59
[2017-02-10] MEDS: ZOLPIDEM 5 MG TABLET PO PRN (22:05)
[2017-02-10] MEDS: DOCUSATE SODIUM 100 MG CAPSULE PO SCH (22:05)
[2017-02-10] MEDS: ATORVASTATIN 20 MG TABLET PO SCH (22:05)
[2017-02-11] MEDS: MORPHINE SULFATE SR 30 MG TABLET.SA PO SCH ×3 (06:29→22:11)
[2017-02-11] MEDS: PANTOPRAZOLE SODIUM 40 MG TABLET.DR PO SCH ×2 (06:30→17:22)
[2017-02-11] MEDS ORDERED: SUCRALFATE 1 G TABLET ONE (07:02)
[2017-02-11 08:41] VITALS: BP 118/59
[2017-02-11] MEDS: VENLAFAXINE XR 37.5 MG CAP.SR.24H PO SCH (11:11)
[2017-02-11] MEDS: DILTIAZEM HCL CD 180 MG CAP.SR.24H PO SCH (11:12)
[2017-02-11] MEDS: LORAZEPAM 1 MG TABLET PO PRN (11:13)
[2017-02-11] MEDS: SENNOSIDES/DOCUSATE SODIUM TABLET PO SCH (11:13)
[2017-02-11] MEDS: MODAFINIL 100 MG TABLET PO SCH (11:13)
[2017-02-11] MEDS: GABAPENTIN 300 MG CAPSULE PO SCH ×3 (11:14→17:22)
[2017-02-11] MEDS: FERROUS SULFATE 325 MG TABEC PO SCH ×2 (11:15→22:10)
[2017-02-11] MEDS: SUCRALFATE 1 G TABLET PO SCH ×4 (11:15→22:10)
[2017-02-11] MEDS: OXYCODONE HCL 5 MG TABLET PO PRN ×2 (11:15→17:22)
[2017-02-11] MEDS: PAROXETINE HCL 20 MG TABLET PO SCH (11:15)
[2017-02-11 20:00] VITALS: BP 103/51
[2017-02-11] MEDS: ATORVASTATIN 20 MG TABLET PO SCH (22:10)
[2017-02-11] MEDS: DOCUSATE SODIUM 100 MG CAPSULE PO SCH (22:10)
[2017-02-11] MEDS: ZOLPIDEM 5 MG TABLET PO PRN (23:24)
[2017-02-12] MEDS: PANTOPRAZOLE SODIUM 40 MG TABLET.DR PO SCH ×2 (06:36→17:25)
[2017-02-12] MEDS: SUCRALFATE 1 G TABLET PO SCH ×4 (06:37→21:14)
[2017-02-12] MEDS: MORPHINE SULFATE SR 30 MG TABLET.SA PO SCH ×3 (06:37→21:14)
[2017-02-12 08:00] VITALS: BP 121/57
--- NOTE | 2017-02-12 10:39 | NUR ---
0730 Pt. resting quietly in bed. Pt. states pain [address] shoulder[address] Refused meds. Pt. requested to not be disturbed for am meds and breakfast and wished to sleep. Hourly rounding. Pt. still sleeping.
--- NOTE | 2017-02-12 11:03 | NUR ---
Hourly rounding. Pt. awoken. Pt. requested to sleep until 1130.
[2017-02-12 11:21] VITALS: BP 98/65
[2017-02-12] MEDS: SENNOSIDES/DOCUSATE SODIUM TABLET PO SCH (11:44)
[2017-02-12] MEDS: VENLAFAXINE XR 37.5 MG CAP.SR.24H PO SCH (11:45)
[2017-02-12] MEDS: MODAFINIL 100 MG TABLET PO SCH (11:45)
[2017-02-12] MEDS: GABAPENTIN 300 MG CAPSULE PO SCH ×3 (11:45→17:24)
[2017-02-12] MEDS: FERROUS SULFATE 325 MG TABEC PO SCH ×2 (11:45→21:14)
[2017-02-12] MEDS: PAROXETINE HCL 20 MG TABLET PO SCH (11:46)
[2017-02-12] MEDS: DILTIAZEM HCL CD 180 MG CAP.SR.24H PO SCH (11:51)
[2017-02-12] MEDS: OXYCODONE HCL 5 MG TABLET PO PRN ×2 (12:38→18:55)
[2017-02-12] MEDS: LORAZEPAM 1 MG TABLET PO PRN (13:40)
[2017-02-12] MEDS ORDERED: LIDOCAINE 5% OINT 35.44 GM TUBE TOP PRN (18:45)
[2017-02-12] MEDS: DOCUSATE SODIUM 100 MG CAPSULE PO SCH (21:00)
[2017-02-12] MEDS: ATORVASTATIN 20 MG TABLET PO SCH (21:14)
[2017-02-12 21:54] VITALS: BP 123/59
[2017-02-12] MEDS: ZOLPIDEM 5 MG TABLET PO PRN (23:43)
[2017-02-13] MEDS: LORAZEPAM 1 MG TABLET PO PRN (00:11)
--- NOTE | 2017-02-13 01:00 | NUR ---
PT DEMONTRATES NO S/S OF INFECTION, VITALS REMAIN WNL. DEYSI TO RT SHOULDER REMAIN C/D/I WITH DRY DSG APPLIED AND ICE PACKS. Addendum: 02/13/17 at 0523 by LUL BUSTAMANTE RN Amended: Links added.
[2017-02-13] MEDS: MORPHINE SULFATE SR 30 MG TABLET.SA PO SCH ×3 (06:56→21:07)
[2017-02-13] MEDS: PANTOPRAZOLE SODIUM 40 MG TABLET.DR PO SCH ×2 (06:56→18:03)
[2017-02-13] MEDS: SUCRALFATE 1 G TABLET PO SCH ×4 (06:56→21:08)
[2017-02-13 07:55] VITALS: BP 115/56
[2017-02-13] MEDS: SENNOSIDES/DOCUSATE SODIUM TABLET PO SCH (09:00)
[2017-02-13] MEDS: VENLAFAXINE XR 37.5 MG CAP.SR.24H PO SCH (10:43)
[2017-02-13] MEDS: OXYCODONE HCL 5 MG TABLET PO PRN ×2 (10:43→18:02)
[2017-02-13] MEDS: GABAPENTIN 300 MG CAPSULE PO SCH ×3 (10:43→18:03)
[2017-02-13] MEDS: MODAFINIL 100 MG TABLET PO SCH (10:44)
[2017-02-13] MEDS: PAROXETINE HCL 20 MG TABLET PO SCH (10:45)
[2017-02-13] MEDS: DILTIAZEM HCL CD 180 MG CAP.SR.24H PO SCH (10:45)
[2017-02-13] MEDS: FERROUS SULFATE 325 MG TABEC PO SCH ×2 (10:45→21:08)
--- NOTE | 2017-02-13 14:22 | NUR ---
DAILY NOTE WAS ABLE TO GET A BSC FOR HER INFORMED HER TO CALL FOR STAFF TO HELP TO BSC INSTEAD OF USING DIAPER. SKIN TO BUTTOCKS RED EXCORIATED Z-GUARD APPLIED ORDERED. SHE SAYS SHE WILL CALL TO GO TO BSC INSTEAD IF USING THE DIAPER.
[2017-02-13 20:41] VITALS: BP 114/57
[2017-02-13] MEDS: DOCUSATE SODIUM 100 MG CAPSULE PO SCH (21:00)
[2017-02-13] MEDS: ATORVASTATIN 20 MG TABLET PO SCH (21:07)
[2017-02-13] MEDS: ZOLPIDEM 5 MG TABLET PO PRN (23:11)
[2017-02-14] MEDS: PANTOPRAZOLE SODIUM 40 MG TABLET.DR PO SCH ×2 (06:40→16:48)
[2017-02-14] MEDS: SUCRALFATE 1 G TABLET PO SCH ×4 (06:40→20:41)
[2017-02-14] MEDS: MORPHINE SULFATE SR 30 MG TABLET.SA PO SCH ×3 (06:41→21:08)
[2017-02-14 08:00] VITALS: BP 126/63
[2017-02-14] MEDS: DILTIAZEM HCL CD 180 MG CAP.SR.24H PO SCH (08:50)
[2017-02-14] MEDS: FERROUS SULFATE 325 MG TABEC PO SCH ×2 (08:51→20:41)
[2017-02-14] MEDS: VENLAFAXINE XR 37.5 MG CAP.SR.24H PO SCH (08:51)
[2017-02-14] MEDS: MODAFINIL 100 MG TABLET PO SCH (08:52)
[2017-02-14] MEDS: GABAPENTIN 300 MG CAPSULE PO SCH ×3 (08:52→16:48)
[2017-02-14] MEDS: PAROXETINE HCL 20 MG TABLET PO SCH (08:52)
[2017-02-14] MEDS: SENNOSIDES/DOCUSATE SODIUM TABLET PO SCH (08:52)
[2017-02-14 10:38] VITALS: BP 126/63
--- NOTE | 2017-02-14 13:39 | NUR ---
PATIENT UPSET THAT SHE IS NOT BEING MOVED TO A PRIVATE ROOM, WHICH WAS WAS PROMISED OVER THE WEEKEND. CORINE-CHARGE NURSE SPEAKING TO PATIENT. EXPLAINED TO HER THAT B BED WILL REMAIN EMPTY, PATIENT STATED THATS WHAT THEY TOLD HER WHEN SHE FIRST ARRIVED TO THIS ROOM AND THEY TRIED BRINGING A PATIENT TO B BED A FEW DAYS AGO.
--- NOTE | 2017-02-14 18:01 | NUR ---
Patient sitting up in bed eating dinner. Bed in low position, locked in place. No resp distress noted. Denies pain/discomfort at this time. All needs attended. Encouraged to call for any assistance, call light within reach. In good spirits, has company.
[2017-02-14 20:00] VITALS: BP 120/68
[2017-02-14] MEDS: DOCUSATE SODIUM 100 MG CAPSULE PO SCH (20:41)
[2017-02-14] MEDS: ATORVASTATIN 20 MG TABLET PO SCH (20:41)
[2017-02-14] MEDS: ZOLPIDEM 5 MG TABLET PO PRN (23:15)
[2017-02-15] MEDS: PANTOPRAZOLE SODIUM 40 MG TABLET.DR PO SCH ×2 (06:25→17:41)
[2017-02-15] MEDS: SUCRALFATE 1 G TABLET PO SCH ×4 (06:25→21:30)
[2017-02-15] MEDS: MORPHINE SULFATE SR 30 MG TABLET.SA PO SCH ×3 (06:25→21:39)
[2017-02-15 07:52] LABS: BASOPHILS % (AUTO) 0.7 % (0.0-2.0); EOSINOPHILS # (AUTO) 0.7 K/uL (0.0-0.7); EOSINOPHILS % (AUTO) 12.7 % (0.0-7.0); HEMOGLOBIN 10.2 G/DL (12.0-16.0); LYMPHOCYTES # (AUTO) 1.2 K/UL (0.8-4.8); LYMPHOCYTES % (AUTO) 21.5 % (20.5-51.5); MEAN CORPUSCULAR HEMOGLOBIN 25.5 UUG (27.0-31.0); MEAN CORPUSCULAR HGB CONC 31 g/dL (32.0-37.0); MONOCYTES # (AUTO) 0.6 K/UL (0.1-1.30); NEUTROPHILS # (AUTO) 2.9 K/UL (1.8-8.9); NEUTROPHILS % (AUTO) 54.1 % (38.5-71.5); PLATELET COUNT (AUTO) 384 K/UL (150-450); RED BLOOD CELL COUNT(AUTO) 4.02 MIL/UL (4.2-5.4); WHITE BLOOD COUNT (AUTO) 5.4 K/UL (4.0-11.2)
[2017-02-15 08:00] VITALS: BP 113/62
[2017-02-15 08:02] LABS: BILIRUBIN,TOTAL 0.2 mg/dL (0.2-1.0); CREATININE 0.8 mg/dL (0.6-1.3); MAGNESIUM 2.1 mg/dL (1.8-2.4); PHOSPHOROUS 4.4 mg/dL (2.5-4.9); POTASSIUM 3.6 mmol/L (3.5-5.1); TOTAL PROTEIN, SERUM 5.9 g/dL (6.4-8.2)
[2017-02-15] MEDS: MODAFINIL 100 MG TABLET PO SCH (09:19)
[2017-02-15] MEDS: FERROUS SULFATE 325 MG TABEC PO SCH ×2 (09:19→21:30)
[2017-02-15] MEDS: PAROXETINE HCL 20 MG TABLET PO SCH (09:19)
[2017-02-15] MEDS: VENLAFAXINE XR 37.5 MG CAP.SR.24H PO SCH (09:19)
[2017-02-15] MEDS: DILTIAZEM HCL CD 180 MG CAP.SR.24H PO SCH (09:22)
[2017-02-15] MEDS: GABAPENTIN 300 MG CAPSULE PO SCH ×3 (09:22→17:41)
[2017-02-15] MEDS: SENNOSIDES/DOCUSATE SODIUM TABLET PO SCH (09:22)
[2017-02-15] MEDS: OXYCODONE HCL 5 MG TABLET PO PRN ×2 (12:33→18:47)
[2017-02-15] MEDS: LORAZEPAM 1 MG TABLET PO PRN (17:45)
[2017-02-15 20:32] VITALS: BP 126/66
[2017-02-15] MEDS: DOCUSATE SODIUM 100 MG CAPSULE PO SCH (21:30)
[2017-02-15] MEDS: ATORVASTATIN 20 MG TABLET PO SCH (21:30)
[2017-02-15] MEDS: ZOLPIDEM 5 MG TABLET PO PRN (23:40)
[2017-02-16] MEDS: MORPHINE SULFATE SR 30 MG TABLET.SA PO SCH ×3 (06:51→21:05)
[2017-02-16] MEDS: SUCRALFATE 1 G TABLET PO SCH ×4 (06:51→20:35)
[2017-02-16] MEDS: PANTOPRAZOLE SODIUM 40 MG TABLET.DR PO SCH ×2 (06:51→17:43)
--- NOTE | 2017-02-16 08:30 | NUR ---
DAILY NOTE SHE REQUEST TOP HAVE HER MORNING MEDS AND VS TAKEN BETWEEN 1100 AND 1130. SHE WANT S TO SLEEP IN.
--- NOTE | 2017-02-16 08:57 | NUR ---
DAILY NOTE RECEIVED IN BED ASLEEP IN NO ACUTE DISTRESS VSS
[2017-02-16] MEDS ORDERED: MIRALAX 17 GM POWD.PACK PO SCH (09:00)
[2017-02-16 11:30] VITALS: BP 151/82
[2017-02-16] MEDS: MODAFINIL 100 MG TABLET PO SCH (11:32)
[2017-02-16] MEDS: LORAZEPAM 1 MG TABLET PO PRN ×2 (11:33→21:04)
[2017-02-16] MEDS: DILTIAZEM HCL CD 180 MG CAP.SR.24H PO SCH (11:33)
[2017-02-16] MEDS: GABAPENTIN 300 MG CAPSULE PO SCH ×3 (11:34→17:42)
[2017-02-16] MEDS: SENNOSIDES/DOCUSATE SODIUM TABLET PO SCH (11:34)
[2017-02-16] MEDS: OXYCODONE HCL 5 MG TABLET PO PRN (11:34)
[2017-02-16] MEDS: PAROXETINE HCL 20 MG TABLET PO SCH (11:35)
[2017-02-16] MEDS: FERROUS SULFATE 325 MG TABEC PO SCH ×2 (11:35→20:35)
[2017-02-16] MEDS: VENLAFAXINE XR 37.5 MG CAP.SR.24H PO SCH (11:35)
--- NOTE | 2017-02-16 15:12 | NUR ---
REHAB TEAM CONFERENCE MEETING 02/16/17
[2017-02-16] MEDS ORDERED: MIRALAX 17 GM POWD.PACK PO PRN (15:45)
--- NOTE | 2017-02-16 19:30 | NUR ---
RECEIVED PATIENT AWAKE, ALERT AND ORIENTED X4. APPEARING IN NAD AT PRESENT. RIGHT SHOULDER DRESSING CLEAN, DRY, AND INTACT.CSM ADEQUATE TO FINGERS.LEFT ARM SLING IN PLACE.ABLE TO INDEPENDENTLY EAT WITH HER LEFT HAND.PM CARE, MELODY CARE DONE, SHE IS INCONTINENT IN HER DIAPERS AND GROINS ARE MOIST AND REDDENED WITH RASH.WILL ATTEMPT TO MAINTAIN CLEANLINESS AND TO KEEP PATIENT CLEAN AND DRY THROUGH THE NIGHT.INSTRUCTED TO CALL RN FOR ALL NEEDS, AND REQUESTS. VERBALIZES GOOD UNDERSTANDING. CALL LIGHT WITHIN REACH AAT. BED ALARM ON.
[2017-02-16] MEDS: ATORVASTATIN 20 MG TABLET PO SCH (20:35)
[2017-02-16] MEDS: DOCUSATE SODIUM 100 MG CAPSULE PO SCH (20:36)
[2017-02-16 20:45] VITALS: BP 112/60
[2017-02-16] MEDS: ZOLPIDEM 5 MG TABLET PO PRN (22:36)
--- NOTE | 2017-02-17 06:15 | NUR ---
PATIENT SLEPT WELL AFTER AMBIEN PO WAS GIVEN. MANAGED PAIN WELL WITH ATC MS CONTIN ENOUGH WHERE SHE WAS ABLE TO SLEEP SOUNDLY. REFUSES TO GET OOB TO BSC DURING THE NIGHT. USES DIAPERS AND IS INCONTINENT, THEN ASKS NURSE TO CHANGE HER. GROINS ARE REDDENED AND REQUIRE Z GUARD CREME WITH EACH INCONTINENCE. ENCOURAGED PATIENT TO GET UP TO BSC MUCH POSSIBLE TO PREVENT WORSENING OF SKIN ISSUES. PATIENT STATES SHE ONLY GETS OOB DURING THE DAY. IN NAD AT PRESENT. CALL LIGHT WITHIN REACH
[2017-02-17] MEDS: PANTOPRAZOLE SODIUM 40 MG TABLET.DR PO SCH ×2 (06:43→17:35)
[2017-02-17] MEDS: SUCRALFATE 1 G TABLET PO SCH ×4 (06:43→21:05)
[2017-02-17] MEDS: MORPHINE SULFATE SR 30 MG TABLET.SA PO SCH ×3 (06:43→21:06)
[2017-02-17 08:19] VITALS: BP 137/66
[2017-02-17] MEDS: VENLAFAXINE XR 37.5 MG CAP.SR.24H PO SCH (11:24)
[2017-02-17] MEDS: FERROUS SULFATE 325 MG TABEC PO SCH ×2 (11:24→21:06)
[2017-02-17] MEDS: SENNOSIDES/DOCUSATE SODIUM TABLET PO SCH (11:25)
[2017-02-17] MEDS: PAROXETINE HCL 20 MG TABLET PO SCH (11:25)
[2017-02-17] MEDS: MODAFINIL 100 MG TABLET PO SCH (11:26)
[2017-02-17] MEDS: OXYCODONE HCL 5 MG TABLET PO PRN ×2 (11:27→17:26)
[2017-02-17] MEDS: LORAZEPAM 1 MG TABLET PO PRN (11:27)
[2017-02-17] MEDS: DILTIAZEM HCL CD 180 MG CAP.SR.24H PO SCH (11:28)
[2017-02-17] MEDS: GABAPENTIN 300 MG CAPSULE PO SCH ×3 (11:29→17:35)
--- NOTE | 2017-02-17 15:40 | NUR ---
DAILY NOTE CALLED MD MCGARRY'S OFFICE REGARDING HER DEYSI STILL BEING AFTER 2WKS OF SURGERY. SPOKE WITH ALEXIS SHE SAYS THE DOC IS IN SURGERY SHE WILL ASK HIM WHEN HE IS AVAILABLE AND CALL ME BACK TODAY OR WILL CALL THE UNIT TOMORROW WITH HIS RESPONSE
--- NOTE | 2017-02-17 18:04 | NUR ---
END OF SHIFT RESTING QUIETLY IN BED. MEDICATED FOR PAIN ORDERED. DIAPER CHANGE MELODY CARE GIVEN
--- NOTE | 2017-02-17 18:55 | NUR ---
END OF SHIFT CONTINENT BUT WANTS TO WEAR A DIAPER. SKIN BETWEEN THIGHS EXCORIATED WITH SCANT SANGUINOUS FL ON THE DIAPER. ENCOURAGED HER NOT TO WEAR THE DIAPER AND GET UP TO THE BSC. CALL THE NURSE FOR ASST TO GET UP TO THE COMMODE THAT HAS BEEN PROVIDED TO HER A FEW DAYS AGO. THE URINE ACID IS IRRITATING THE SKIN. WILL NEED FURTHER REINFORCEMENT. ZGUARD APPLIED TO AFFECTED AREA NO C/O PAIN WITH APPLICATION. LYING ON DIAPER BUT IT IS NOT BETWEEN THE LEGS. ENCOURAGE HER TO GET AIR TO THE AREA. GET UP TO BSC SO SHE CAN GET GOOD MELODY CARE AND KEEP BETWEEN THE THIGHS CLEAN AND DRY. PASS ON TO NIGHT NURSE FOR REINFORCEMENT
[2017-02-17] MEDS: DOCUSATE SODIUM 100 MG CAPSULE PO SCH (21:05)
[2017-02-17] MEDS: ATORVASTATIN 20 MG TABLET PO SCH (21:05)
[2017-02-17 21:33] VITALS: BP 118/62
[2017-02-17] MEDS: ZOLPIDEM 5 MG TABLET PO PRN (23:07)
[2017-02-18] MEDS: SUCRALFATE 1 G TABLET PO SCH ×4 (06:32→21:22)
[2017-02-18] MEDS: PANTOPRAZOLE SODIUM 40 MG TABLET.DR PO SCH ×2 (06:32→16:33)
[2017-02-18] MEDS: MORPHINE SULFATE SR 30 MG TABLET.SA PO SCH ×3 (06:33→21:22)
--- NOTE | 2017-02-18 06:34 | NUR ---
Patient alert and verbally able to let needs known. Slept well throughout the night. Refuses to get up to the commode at night despite multiple offers from staff. Patient maintained clean and dry. Call light within reach, all needs attended to.
[2017-02-18 08:20] VITALS: BP 138/74
[2017-02-18] MEDS: FERROUS SULFATE 325 MG TABEC PO SCH ×2 (08:49→21:21)
[2017-02-18] MEDS: PAROXETINE HCL 20 MG TABLET PO SCH (08:49)
[2017-02-18] MEDS: GABAPENTIN 300 MG CAPSULE PO SCH ×3 (08:49→17:08)
[2017-02-18] MEDS: MODAFINIL 100 MG TABLET PO SCH (08:49)
[2017-02-18] MEDS: VENLAFAXINE XR 37.5 MG CAP.SR.24H PO SCH (08:49)
[2017-02-18] MEDS: SENNOSIDES/DOCUSATE SODIUM TABLET PO SCH (08:51)
[2017-02-18] MEDS: DILTIAZEM HCL CD 180 MG CAP.SR.24H PO SCH (08:51)
--- NOTE | 2017-02-18 10:02 | NUR ---
Patient sleepy, requests not to be bother by anyone. Did not eat breakfast. Encouraged to stay awake and get morning going, she replied "I want to sleep more". Room is extremely cold, patient states "I like it this way!" JENNIFER Nichole reported patient did not want to be disturbed by her either. Informed charge nurse Paul. Will continue to check on patient every 30 minutes.
--- NOTE | 2017-02-18 15:00 | NUR ---
Taty, paralegal secretary received phone call from Dr. Walls's office. Spoke to Lexii. Stated that Dr. Walls gave okay for nurse to removed sutures from shoulder incision. Informed charge nurse, Paul. Patient is asleep at this time, will wait for her to waken as per her "Do not bother me when I am sleeping order".
--- NOTE | 2017-02-18 16:00 | NUR ---
Patients' family here visiting from [place]. Patient requesting for sutures to be removed later. Patient will be moved to [facility] per her private room request. Regarding order for suture removal, requested Taty, insulation power unit tender to call Dr. Walls's office and let me speak to him directly. Pending call back.
--- NOTE | 2017-02-18 17:00 | NUR ---
Patient moved to room 104A per her request for private room. All belongings moved per family.
[2017-02-18] MEDS: OXYCODONE HCL 5 MG TABLET PO PRN (17:07)
--- NOTE | 2017-02-18 18:00 | NUR ---
Removed dressing from incision of right shoulder. Found bisi, not sutures. Removed 17 bisi without incidence. No open spots, active bleeding and/or no S&S of infection. Patient tolerated procedure well. Left incision open to air. WIll continue to monitor.
[2017-02-18 20:00] VITALS: BP 123/64
[2017-02-18 20:51] VITALS: BP 123/64
[2017-02-18] MEDS: DOCUSATE SODIUM 100 MG CAPSULE PO SCH (21:22)
[2017-02-18] MEDS: ATORVASTATIN 20 MG TABLET PO SCH (21:22)
[2017-02-18] MEDS: ZOLPIDEM 5 MG TABLET PO PRN (22:50)
[2017-02-18] MEDS: LORAZEPAM 1 MG TABLET PO PRN (22:50)
[2017-02-19] MEDS: SUCRALFATE 1 G TABLET PO SCH ×4 (06:34→21:10)
[2017-02-19] MEDS: PANTOPRAZOLE SODIUM 40 MG TABLET.DR PO SCH ×2 (06:35→17:06)
[2017-02-19] MEDS: MORPHINE SULFATE SR 30 MG TABLET.SA PO SCH ×3 (06:35→21:10)
--- NOTE | 2017-02-19 07:15 | NUR ---
RECD BEDSIDE SBAR REPORT, PT SLEEPING, NO DISTRESS NOTED.
[2017-02-19] MEDS: PAROXETINE HCL 20 MG TABLET PO SCH (09:52)
[2017-02-19] MEDS: GABAPENTIN 300 MG CAPSULE PO SCH ×3 (09:52→17:49)
[2017-02-19] MEDS: VENLAFAXINE XR 37.5 MG CAP.SR.24H PO SCH (09:52)
--- NOTE | 2017-02-19 11:00 | NUR ---
PHARMACY NOTE, DELAY IN MED ADMINISTRATION DUE TO ACUTE HEPARIN ORDER/CHANGE OF DOSE FOR ANOTHER PATIENT
[2017-02-19] MEDS: FERROUS SULFATE 325 MG TABEC PO SCH ×2 (11:11→21:10)
[2017-02-19] MEDS: SENNOSIDES/DOCUSATE SODIUM TABLET PO SCH (11:11)
[2017-02-19] MEDS: MODAFINIL 100 MG TABLET PO SCH (11:11)
[2017-02-19] MEDS: DILTIAZEM HCL CD 180 MG CAP.SR.24H PO SCH (11:15)
[2017-02-19 11:33] VITALS: BP 120/70
[2017-02-19] MEDS: LORAZEPAM 1 MG TABLET PO PRN ×2 (12:46→22:34)
[2017-02-19 18:52] VITALS: BP 122/74
--- NOTE | 2017-02-19 19:19 | NUR ---
bedside sbar report to refugio richards. pt resting, no distress noted.
[2017-02-19 20:37] VITALS: BP 127/71
[2017-02-19] MEDS: DOCUSATE SODIUM 100 MG CAPSULE PO SCH (21:10)
[2017-02-19] MEDS: ATORVASTATIN 20 MG TABLET PO SCH (21:10)
[2017-02-19] MEDS: ZOLPIDEM 5 MG TABLET PO PRN (22:34)
[2017-02-20] MEDS: PANTOPRAZOLE SODIUM 40 MG TABLET.DR PO SCH ×2 (06:42→17:21)
[2017-02-20] MEDS: SUCRALFATE 1 G TABLET PO SCH ×4 (06:42→20:10)
[2017-02-20] MEDS: MORPHINE SULFATE SR 30 MG TABLET.SA PO SCH ×3 (06:42→22:01)
[2017-02-20 08:00] VITALS: BP 127/64
[2017-02-20] MEDS: FERROUS SULFATE 325 MG TABEC PO SCH ×2 (09:32→20:10)
[2017-02-20] MEDS: MODAFINIL 100 MG TABLET PO SCH (09:32)
[2017-02-20] MEDS: VENLAFAXINE XR 37.5 MG CAP.SR.24H PO SCH (09:32)
[2017-02-20] MEDS: PAROXETINE HCL 20 MG TABLET PO SCH (09:32)
[2017-02-20] MEDS: GABAPENTIN 300 MG CAPSULE PO SCH ×3 (09:32→17:21)
[2017-02-20] MEDS: SENNOSIDES/DOCUSATE SODIUM TABLET PO SCH (09:32)
[2017-02-20] MEDS: DILTIAZEM HCL CD 180 MG CAP.SR.24H PO SCH (09:33)
[2017-02-20] MEDS: LORAZEPAM 1 MG TABLET PO PRN ×2 (13:42→20:10)
[2017-02-20] MEDS: OXYCODONE HCL 5 MG TABLET PO PRN (17:21)
--- NOTE | 2017-02-20 18:13 | NUR ---
Patient had a good today received PRNs during shift. No PT or OT today.
[2017-02-20] MEDS: ATORVASTATIN 20 MG TABLET PO SCH (20:10)
[2017-02-20 20:21] VITALS: BP 136/74
[2017-02-20] MEDS: DOCUSATE SODIUM 100 MG CAPSULE PO SCH (22:00)
[2017-02-20] MEDS: ZOLPIDEM 5 MG TABLET PO PRN (23:31)
[2017-02-20] MEDS ORDERED: ZOLPIDEM 5 MG TABLET ONE (23:39)
[2017-02-21] MEDS: OXYCODONE HCL 5 MG TABLET PO PRN ×2 (00:20→06:27)
--- NOTE | 2017-02-21 03:20 | NUR ---
CALLED AND SPOKED TO VESNA CONTI NP IN REGARDS T RENEWINING ORDERS OF THE MEDS. STATED HE WOULD.
[2017-02-21] MEDS: SUCRALFATE 1 G TABLET PO SCH ×4 (06:26→20:44)
[2017-02-21] MEDS: PANTOPRAZOLE SODIUM 40 MG TABLET.DR PO SCH ×2 (06:26→16:39)
--- NOTE | 2017-02-21 06:50 | NUR ---
continue to have right shoulder pain,kept on the slight, still NWB to right shoulder. all meds given, kept attended.
--- NOTE | 2017-02-21 07:21 | NUR ---
rec'd bedside sbar report, pt sleeping with eyes closed, no distress noted.
[2017-02-21 07:32] VITALS: BP 120/62
[2017-02-21] MEDS: PAROXETINE HCL 20 MG TABLET PO SCH (08:44)
[2017-02-21] MEDS: MODAFINIL 100 MG TABLET PO SCH (08:44)
[2017-02-21] MEDS: DILTIAZEM HCL CD 180 MG CAP.SR.24H PO SCH (08:45)
[2017-02-21] MEDS: FERROUS SULFATE 325 MG TABEC PO SCH ×2 (08:45→20:44)
[2017-02-21] MEDS: SENNOSIDES/DOCUSATE SODIUM TABLET PO SCH (08:45)
[2017-02-21] MEDS: VENLAFAXINE XR 37.5 MG CAP.SR.24H PO SCH (08:45)
[2017-02-21 09:07] LABS: BASOPHILS % (AUTO) 0.7 % (0.0-2.0); EOSINOPHILS # (AUTO) 0.6 K/uL (0.0-0.7); EOSINOPHILS % (AUTO) 11.8 % (0.0-7.0); HEMATOCRIT 33.7 % (37-47); HEMOGLOBIN 10.4 G/DL (12.0-16.0); LYMPHOCYTES # (AUTO) 1.5 K/UL (0.8-4.8); LYMPHOCYTES % (AUTO) 28.4 % (20.5-51.5); MEAN CORPUSCULAR HEMOGLOBIN 25.6 UUG (27.0-31.0); MEAN CORPUSCULAR HGB CONC 31 g/dL (32.0-37.0); MEAN CORPUSCULAR VOLUME 82.8 FL (81.0-99.0); MONOCYTES # (AUTO) 0.5 K/UL (0.1-1.30); MONOCYTES % (AUTO) 9.4 % (0.0-11.0); NEUTROPHILS # (AUTO) 2.8 K/UL (1.8-8.9); NEUTROPHILS % (AUTO) 49.7 % (38.5-71.5); PLATELET COUNT (AUTO) 373 K/UL (150-450); RED BLOOD CELL COUNT(AUTO) 4.07 MIL/UL (4.2-5.4); WHITE BLOOD COUNT (AUTO) 5.4 K/UL (4.0-11.2)
[2017-02-21] MEDS: GABAPENTIN 300 MG CAPSULE PO SCH ×3 (09:19→16:38)
[2017-02-21] MEDS ORDERED: LORAZEPAM 1 MG TABLET PO PRN (16:30)
[2017-02-21] MEDS ORDERED: OXYCODONE HCL 5 MG TABLET PO PRN (16:30)
[2017-02-21] MEDS: MORPHINE SULFATE SR 30 MG TABLET.SA PO SCH ×2 (16:39→22:01)
[2017-02-21] MEDS: ONDANSETRON ODT 4 MG TAB.RAPDIS SL PRN (17:22)
--- NOTE | 2017-02-21 19:08 | NUR ---
PT PROGRESSING TOWARDS GOALS, BEDSIDE SBAR REPORT TO PM SHIFT. CONTINUE PLAN OF CARE.
[2017-02-21 20:22] VITALS: BP 133/68
[2017-02-21] MEDS: DOCUSATE SODIUM 100 MG CAPSULE PO SCH (20:44)
[2017-02-21] MEDS: ATORVASTATIN 20 MG TABLET PO SCH (20:44)
--- NOTE | 2017-02-21 21:15 | NUR ---
PT FELL . PT WAS PLACED ON THE COMMODE . AFTER HAVING A BOWEL MOVEMENT PT GET UP BY HERSELF TRYING TO WIPE HERSELF ,PER PT SHE IS TAKING A STEP SIDEWAYS AND NOT KNOWING THERE WAS URINE ON THE FLOOR, SHE SLIDE AND FELL BACKWARDS, REGISTER OF WILLS WAS JUST OUTSIDE THE ROOM TO GIVE HER PRIVACY HEARD A LOUD BANG AND WENT TO THE ROOM AND FOUND ON THE FLOOR SITTING. 3 PERSON ASSISTANCE TO LIFT PT FROM THE FLOOR TO THE BED ,PT UNAble to stand on her FEET. NO BRUISING, NO LACERATION NOTED.CALLED DR. DAVILA AND ORDERED XRAY OF SHOULDER VITALS TAKEN BP 123/63, HR 63 TEMP 99.3. PAIN TO OLD FRACTURE HUMERUS REMAINS THE SAME. PT'S SON MADE AWARE BUT DIDN'T ANSWER THE CALL SO JUST LEFT MESSAGE.WILL CONTINUE TO MONITOR,BED ALARM ACTIVATED.
[2017-02-21] MEDS ORDERED: MORPHINE SULFATE SR 30 MG TABLET.SA PO SCH (22:00)
[2017-02-21] MEDS: LORAZEPAM 1 MG TABLET PO PRN (22:03)
[2017-02-21] MEDS: MAG HYDROX/AL HYDROX/SIMETH 30 ML LIQUID UDC PO PRN (22:48)
[2017-02-21] MEDS: ZOLPIDEM 5 MG TABLET PO PRN (23:12)
[2017-02-22] MEDS: PANTOPRAZOLE SODIUM 40 MG TABLET.DR PO SCH ×2 (06:06→16:59)
[2017-02-22] MEDS: MORPHINE SULFATE SR 30 MG TABLET.SA PO SCH ×3 (06:06→22:01)
[2017-02-22] MEDS: SUCRALFATE 1 G TABLET PO SCH ×4 (06:08→20:11)
[2017-02-22 06:31] VITALS: BP 120/66
--- NOTE | 2017-02-22 06:41 | NUR ---
PT SLEPT WELL , XRAY OF SHOULDER RESULTED BUT NO NEW INJURY. CONTINUE WITH PAIN MEDS GIVEN, NO SIGNIFICANT CHANGES. WILL CONTINUE TO MONITOR.
[2017-02-22 08:00] VITALS: BP 119/62
--- NOTE | 2017-02-22 08:40 | NUR ---
Patient awake, alert and oriented x 4. Sleeps intermittently but abusable to name. Pain over right arm rated as 6/10. No s/s of distress. Call light within reach. Bed rails up x2. Encouraged to call for needs and when she needs to use commode.
[2017-02-22] MEDS: GABAPENTIN 300 MG CAPSULE PO SCH ×3 (09:05→16:59)
[2017-02-22] MEDS: VENLAFAXINE XR 37.5 MG CAP.SR.24H PO SCH (09:05)
[2017-02-22] MEDS: FERROUS SULFATE 325 MG TABEC PO SCH ×2 (09:05→20:11)
[2017-02-22] MEDS: SENNOSIDES/DOCUSATE SODIUM TABLET PO SCH (09:06)
[2017-02-22] MEDS: PAROXETINE HCL 20 MG TABLET PO SCH (09:06)
[2017-02-22] MEDS: DILTIAZEM HCL CD 180 MG CAP.SR.24H PO SCH (09:07)
--- NOTE | 2017-02-22 11:50 | NUR ---
SEEN AND EXAMINED BY DR. SIMMONS. HELD DISCHARGE FOR TODAY AND WILL REFER TO ORTHO PER DR. SIMMONS.
--- NOTE | 2017-02-22 12:00 | NUR ---
PATIENT DISCHARGED IN STABLE CONDITION. NO COMPLAINTS OF PAIN. PATIENT EDUCATION ON WOUND CARE, DIET, DVT AND MEDICATIONS GIVEN. REFUSED PHARMACY CONSULTATION FOR MEDICATIONS. INFORMED PATIENT TO FOLLOW UP WITH PCP ON MARCH 08 AT 13:30 AND TO TAKE HOME MEDICATIONS PRESCRIBED. WENT HOME AMBULATORY WITH FRONT WHEEL WALKER, ACCOMPANIED BY SISTER. Addendum: 02/22/17 at 1335 by MADYSON BIRCH RN NOTES DOCUMENTED ON WRONG PATIENT, NOTES FOR PTKarthikeyan ALBA.
[2017-02-22] MEDS: OXYCODONE HCL 5 MG TABLET PO PRN ×2 (12:23→20:12)
--- NOTE | 2017-02-22 12:25 | NUR ---
PATIENT COMPLAINED OF RIGHT SHOULDER PAIN RATED 9/10. OXYCODONE PRN GIVEN.
--- NOTE | 2017-02-22 12:40 | NUR ---
INFORMED DR. MCGARRY OF FALL INCIDENT AND RELAYED X RAY RESULT. NO NEW ORDERS AT THIS TIME. SAID HE WILL SEE PATIENT IN THE AFTERNOON
--- NOTE | 2017-02-22 13:48 | NUR ---
PATIENT SAID " I HAVE AN UPSET STOMACH, FEELS THE SAME YESTERDAY." PRN MAALOX GIVEN
[2017-02-22] MEDS: MAG HYDROX/AL HYDROX/SIMETH 30 ML LIQUID UDC PO PRN (13:51)
--- NOTE | 2017-02-22 18:30 | NUR ---
Paged Dr. Walls, ortho licensed bondsman for new orders and plan of care for patient regarding previously relayed X ray of right shoulder. Waiting for call back.
--- NOTE | 2017-02-22 19:30 | NUR ---
PT ALERT AND ORIENTED IN BED. NO DISTRESS NOTED. COMPLAINT WITH NURSING CARE. INSTRUCTED TO USED CALL LIGHT IF NEED TO GET UP TO USE THE COMMODE OR IF NEED HELP. PT VERBALIZED UNDERSTANDING THAT SHE WILL USE THE CALL LIGHT. BED ALARM ON, IN LOW LOCKED POSITIONED. CALL LIGHT WITHIN REACH. SAFETY MAINTAINED.
[2017-02-22] MEDS: ATORVASTATIN 20 MG TABLET PO SCH (20:11)
[2017-02-22] MEDS: DOCUSATE SODIUM 100 MG CAPSULE PO SCH (20:11)
[2017-02-22 20:15] VITALS: BP 108/59
[2017-02-22] MEDS: LORAZEPAM 1 MG TABLET PO PRN (22:35)
[2017-02-22] MEDS: Z GUARD REMEDY PASTE 57 GM TUBE TOP PRN (23:05)
[2017-02-22] MEDS: ZOLPIDEM 5 MG TABLET PO PRN (23:35)
[2017-02-23] MEDS: SUCRALFATE 1 G TABLET PO SCH ×4 (06:53→20:38)
[2017-02-23] MEDS: MORPHINE SULFATE SR 30 MG TABLET.SA PO SCH ×3 (06:53→21:59)
[2017-02-23] MEDS: PANTOPRAZOLE SODIUM 40 MG TABLET.DR PO SCH ×2 (06:53→17:32)
--- NOTE | 2017-02-23 07:29 | NUR ---
PT RESTING IN BED. NO DISTRESS NOTED. CLEAN AND DRY. TURNED AND REPOSITIONED. Z GUARD APPLIED AND WOUND CARE COMPLETED ORDERED. SAFETY MAINTAINED. BED IN LOW LOCKED POSITION. BED ALARM ON. CALL LIGHT WITHIN REACH.
[2017-02-23 08:41] VITALS: BP 132/67
--- NOTE | 2017-02-23 09:15 | NUR ---
Patient asleep arouses easily. Refused breakfast and medications at this time. Encouraged to call for needs. Call light within reach. Alert and oriented. No s/s of distress. No other complaints of discomfort at the moment.
[2017-02-23] MEDS: VENLAFAXINE XR 37.5 MG CAP.SR.24H PO SCH (10:13)
[2017-02-23] MEDS: PAROXETINE HCL 20 MG TABLET PO SCH (10:13)
[2017-02-23] MEDS: FERROUS SULFATE 325 MG TABEC PO SCH ×2 (10:13→20:39)
[2017-02-23] MEDS: GABAPENTIN 300 MG CAPSULE PO SCH ×3 (10:13→17:32)
[2017-02-23] MEDS: DILTIAZEM HCL CD 180 MG CAP.SR.24H PO SCH (10:14)
[2017-02-23] MEDS: SENNOSIDES/DOCUSATE SODIUM TABLET PO SCH (10:14)
--- NOTE | 2017-02-23 12:30 | NUR ---
Seen and examined by Dr. Walls. For possible surgery tomorrow or Tuesday for fixation of right shoulder
--- NOTE | 2017-02-23 15:24 | NUR ---
REHAB TEAM CONFERENCE MEETING 02/23/17
--- NOTE | 2017-02-23 17:00 | NUR ---
Tolerated therapy well. No complaints of pain at the moment. Refused to take pictures on gunjan-anal and buttocks area for documentation.
[2017-02-23] MEDS: OXYCODONE HCL 5 MG TABLET PO PRN (20:01)
[2017-02-23 20:22] VITALS: BP 132/64
[2017-02-23] MEDS: DOCUSATE SODIUM 100 MG CAPSULE PO SCH (20:38)
[2017-02-23] MEDS: ATORVASTATIN 20 MG TABLET PO SCH (20:39)
[2017-02-23] MEDS: LORAZEPAM 1 MG TABLET PO PRN (22:54)
[2017-02-23] MEDS: ZOLPIDEM 5 MG TABLET PO PRN (23:50)
[2017-02-24] MEDS: PANTOPRAZOLE SODIUM 40 MG TABLET.DR PO SCH ×2 (06:02→16:15)
[2017-02-24] MEDS: SUCRALFATE 1 G TABLET PO SCH ×4 (06:02→21:14)
[2017-02-24] MEDS: MORPHINE SULFATE SR 30 MG TABLET.SA PO SCH ×3 (06:02→22:10)
--- NOTE | 2017-02-24 06:28 | NUR ---
pt continue to complain of right shoulder pain ,given her schedule morphine. ambien for sleep, and slept well, uses diaper at night,no bm.excoriated perineal with zguard applied to. instructed pt not to scratch skin, perineal already open and skin bleed.all needs attended,call light at reached.
--- NOTE | 2017-02-24 09:30 | NUR ---
PT REFUSED TO HAVE MEDS AT THIS TIME BECAUSE SHE WANTS IT LATER AND DOESNT WANT TO BE DISTURBED DURING SLEEP. WILL PROVIDE MEDS WHEN PT IS AWAKE.
[2017-02-24] MEDS: VENLAFAXINE XR 37.5 MG CAP.SR.24H PO SCH (11:21)
[2017-02-24] MEDS: PAROXETINE HCL 20 MG TABLET PO SCH (11:21)
[2017-02-24] MEDS: GABAPENTIN 300 MG CAPSULE PO SCH ×3 (11:21→16:15)
[2017-02-24] MEDS: SENNOSIDES/DOCUSATE SODIUM TABLET PO SCH (11:21)
[2017-02-24] MEDS: FERROUS SULFATE 325 MG TABEC PO SCH ×2 (11:21→21:14)
[2017-02-24] MEDS: DILTIAZEM HCL CD 180 MG CAP.SR.24H PO SCH (11:25)
[2017-02-24] MEDS: MAG HYDROX/AL HYDROX/SIMETH 30 ML LIQUID UDC PO PRN (15:11)
[2017-02-24] MEDS: ONDANSETRON ODT 4 MG TAB.RAPDIS SL PRN (15:11)
--- NOTE | 2017-02-24 18:38 | NUR ---
pt stated that she would [facility] when she gets discharged. telephonic case manager notified. pt had no signs of distress during shift. pt stated that she wasnt on pain during shift. pt voided and bm during shift. pt adhered to medications and therapy. pt provided comfort measures. call light within reach.
--- NOTE | 2017-02-24 19:30 | NUR ---
Patient received in stable condition. Sitting up in bed. Alert and verbally responsive. Able to make needs known. No c/o pain and discomfort. No acute distress. All needs attended to promptly. Bed in low position. Call light within reach. Will continue to monitor.
[2017-02-24 20:46] VITALS: BP 127/67
[2017-02-24] MEDS: DOCUSATE SODIUM 100 MG CAPSULE PO SCH (21:14)
[2017-02-24] MEDS: ATORVASTATIN 20 MG TABLET PO SCH (21:15)
[2017-02-24] MEDS: LORAZEPAM 1 MG TABLET PO PRN (21:15)
[2017-02-24] MEDS: ZOLPIDEM 5 MG TABLET PO PRN (23:22)
[2017-02-25] MEDS: PANTOPRAZOLE SODIUM 40 MG TABLET.DR PO SCH ×2 (06:48→16:54)
[2017-02-25] MEDS: SUCRALFATE 1 G TABLET PO SCH ×4 (06:48→21:17)
[2017-02-25] MEDS: MORPHINE SULFATE SR 30 MG TABLET.SA PO SCH ×3 (06:49→21:18)
--- NOTE | 2017-02-25 06:53 | NUR ---
Patient is awake. Slept comfortably throughout the night. AM medications give. All needs attended to promptly. Call light within reach. Will continue to monitor.
--- NOTE | 2017-02-25 07:45 | NUR ---
Pt.sleepy,ask not to disturb her about 1000am,no s/s of distress,denies any pain.
[2017-02-25] MEDS: VENLAFAXINE XR 37.5 MG CAP.SR.24H PO SCH (09:26)
[2017-02-25] MEDS: PAROXETINE HCL 20 MG TABLET PO SCH (09:26)
[2017-02-25] MEDS: SENNOSIDES/DOCUSATE SODIUM TABLET PO SCH (09:26)
[2017-02-25] MEDS: FERROUS SULFATE 325 MG TABEC PO SCH ×2 (09:26→21:17)
[2017-02-25] MEDS: GABAPENTIN 300 MG CAPSULE PO SCH ×3 (09:26→16:54)
[2017-02-25] MEDS: DILTIAZEM HCL CD 180 MG CAP.SR.24H PO SCH (09:31)
[2017-02-25] MEDS: Z GUARD REMEDY PASTE 57 GM TUBE TOP PRN (09:32)
--- NOTE | 2017-02-25 10:36 | NUR ---
Pt.in bed,A/A/Ox4 no s/s of acute distress,denies pain @ time,watching TV.
[2017-02-25] MEDS: OXYCODONE HCL 5 MG TABLET PO PRN (12:17)
--- NOTE | 2017-02-25 15:35 | NUR ---
PT.SLEEPING NO S/S OF DISTRESS OR PAIN NOTED.
--- NOTE | 2017-02-25 17:22 | NUR ---
PT.WAS SEEN DR.NIAMER FLORES.
[2017-02-25 20:00] VITALS: BP 125/75
[2017-02-25] MEDS: ATORVASTATIN 20 MG TABLET PO SCH (21:17)
[2017-02-25] MEDS: DOCUSATE SODIUM 100 MG CAPSULE PO SCH (21:17)
--- NOTE | 2017-02-25 22:55 | NUR ---
PATIENT AWAKE ON BED, PATIENT HAS RIGHT SHOULDER PAIN. SHE IS USING SLING. PATIENT WILL BE HAVING SURGERY TOMORROW. PATINE WILL BE NPO PAST MIDNIGHT. PATIENT AWARE. CALL LIGHT PLACED IN REACH AND REMINDED HER TO CALL FOR HELP ON NEED.
[2017-02-26] MEDS: MORPHINE SULFATE SR 30 MG TABLET.SA PO SCH (06:00)
--- NOTE | 2017-02-26 06:20 | NUR ---
PATIENT WILL BE HAVING RIGHT SHOULDER SURGERY BY DR. MCGARRY. CONSENT SIGNED, PRE OP CHECK LIST INITIATED. CONTINUING NPO PAST MID NIGHT. PATIENT INTERMITTENTLY SLEEPING. AM PO MEDICATION NOT GIVEN DUE NPO STATUS . NO C/O OF PAIN AT THIS TIME.
[2017-02-26] MEDS: SUCRALFATE 1 G TABLET PO SCH (07:30)
[2017-02-26] MEDS: PANTOPRAZOLE SODIUM 40 MG TABLET.DR PO SCH (07:30)
[2017-02-26 08:07] VITALS: BP 136/71
[2017-02-26] MEDS: FERROUS SULFATE 325 MG TABEC PO SCH (09:00)
[2017-02-26] MEDS: DILTIAZEM HCL CD 180 MG CAP.SR.24H PO SCH (09:00)
[2017-02-26] MEDS: VENLAFAXINE XR 37.5 MG CAP.SR.24H PO SCH (09:00)
[2017-02-26] MEDS: GABAPENTIN 300 MG CAPSULE PO SCH (09:00)
[2017-02-26] MEDS: PAROXETINE HCL 20 MG TABLET PO SCH (09:00)
[2017-02-26] MEDS: SENNOSIDES/DOCUSATE SODIUM TABLET PO SCH (09:00)
[2017-02-26] MEDS ORDERED: POLYMYXIN B SULFATE 500,000 UNITS, BACITRACIN 50,000 UNITS, NORMAL SALINE 20 ML MC ONE ×3 (10:30)
[2017-02-26] MEDS ORDERED: ROCURONIUM BROMIDE 50 MG/5 ML VIAL ONE (11:45)
[2017-02-26] MEDS ORDERED: FENTANYL CITRATE 100 MCG/2 ML AMPUL ONE (11:45)
--- NOTE | 2017-02-26 15:18 | NUR ---
Orders for discharge received, patient transferred to M/S 2nd floor after surgery today. All discharge instructions completed, reviewed, and given to patient. Report given to nurse in M/S 2nd floor, no other questions at this time. Belongings verified with patient and staff, VS WNL. No other verbalized needs at this time. Safety precautions maintained.
[2017-02-26] MEDS ORDERED: BISA10SU61 RC (16:07)
[2017-02-26] MEDS ORDERED: POLY17PO4 PO (16:07)
[2017-02-26] MEDS ORDERED: ONDA4TAB8 SL (16:07)
[2017-02-26] MEDS ORDERED: DOCU-141 PO (16:07)
[2017-02-26] MEDS ORDERED: LIDO35.4 TP (16:07)
[2017-02-26] MEDS ORDERED: ZOLP5TAB2 PO (16:07)
[2017-02-26] MEDS ORDERED: SENN-22 PO (16:07)
[2017-02-26] MEDS ORDERED: OXYC5CAP18 PO (16:07)
[2017-02-26] MEDS ORDERED: MAG355OR18 PO (16:07)
== END 2017-02-26 14:00 | disposition short-term general hospital (02) | DRG 559 ==
PROVIDERS: ADMIT Physical Medicine & Rehabilitation Pain Medicine; ATTEND Physical Medicine & Rehabilitation Pain Medicine
DX: S42.291D Other displaced fracture of upper end of right humerus, subsequent encounter for fracture with routine healing (principal); E43 Unspecified severe protein-calorie malnutrition; T84.038A Mechanical loosening of other internal prosthetic joint, initial encounter; S09.90XD Unspecified injury of head, subsequent encounter; W18.39XD Other fall on same level, subsequent encounter; Z96.611 Presence of right artificial shoulder joint; D50.9 Iron deficiency anemia, unspecified; E55.9 Vitamin D deficiency, unspecified; E66.01 Morbid (severe) obesity due to excess calories; E78.5 Hyperlipidemia, unspecified; G62.9 Polyneuropathy, unspecified; F31.9 Bipolar disorder, unspecified; G89.29 Other chronic pain; J44.9 Chronic obstructive pulmonary disease, unspecified; K59.00 Constipation, unspecified; M81.0 Age-related osteoporosis without current pathological fracture; R29.6 Repeated falls; Z68.36 Body mass index [BMI] 36.0-36.9, adult; R27.0 Ataxia, unspecified; R53.1 Weakness; Z86.73 Personal history of transient ischemic attack (TIA), and cerebral infarction without residual deficits; Y92.230 Patient room in hospital as the place of occurrence of the external cause; Z87.891 Personal history of nicotine dependence; M51.37 Other intervertebral disc degeneration, lumbosacral region; R53.81 Other malaise; I12.9 Hypertensive chronic kidney disease with stage 1 through stage 4 chronic kidney disease, or unspecified chronic kidney disease; N18.9 Chronic kidney disease, unspecified; M17.9 Osteoarthritis of knee, unspecified; J45.909 Unspecified asthma, uncomplicated; K30 Functional dyspepsia; M54.5 Low back pain; R11.0 Nausea; R19.5 Other fecal abnormalities; M85.80 Other specified disorders of bone density and structure, unspecified site; M25.552 Pain in left hip; Z91.81 History of falling
CPT/HCPCS: 36415; 70030-TC; 73030; 83735; 84100; 85025; 92523; 97110; 97112; 97116; 97161; 97530; 97535; A4663; J3010; J3490; Q0162

== ENCOUNTER 2017-02-26 14:34 | Inpatient (IN) | payer MEDICARE, OTHER ==
[~2017-02-26] VITALS: Ht 162.6 cm; Wt 86.2 kg
[~2017-02-26 14:34] MED LIST changes: -BISA10SU61 RC; -CEFAZOLIN 1 G VIAL MC ONE; -DEXAMETHASONE SOD PHOSPHATE 4 MG INJ IV ONE; -DOCU-141 PO; -FENTANYL CITRATE 100 MCG/2 ML AMPUL ONE; -GLYCOPYRROLATE 0.2 MG/ML VIAL MC ONE; -HYDROMORPHONE 1 MG/1 ML DISP.SYRIN ONE; -IRR NORMAL SALINE IRRIGATION 2000 ML BOTTLE IR ONE; -IV D5W-0.45% NS +20 KCL 1,000 ML IV ONE; -IV LACTATED RINGERS SOLUTION 1,000 ML BAG MC ONE; -LIDO35.4 TP; -LIDOCAINE HCL 2% 20 ML VIAL MC ONE; -MAG355OR18 PO; -NEOSTIGMINE METHYLSULFATE 10 MG/10 ML VIAL IV ONE; -ONDA4TAB8 SL; -ONDANSETRON 4 MG/2 ML VIAL IV ONE; -OXYC5CAP18 PO; -POLY17PO4 PO; -POLYMYXIN B SULFATE 500,000 UNITS, BACITRACIN 50,000 UNITS, NORMAL SALINE 20 ML MC ONE; -PROPOFOL 200 MG/20 ML BOTTLE IV ONE; -SENN-22 PO; -SEVOFLURANE 250 ML BOTTLE IH ONE; -SEVOFLURANE 250 ML BOTTLE ONE; -ZOLP5TAB2 PO
[2017-02-26 14:40] VITALS: BP 155/82
--- NOTE | 2017-02-26 14:45 | NUR ---
recieved patient from or by maurice maloney. patient resting well.
[2017-02-26] MEDS: MORPHINE SULFATE 4 MG/1 ML DISP.SYRIN IV PRN ×3 (15:53→20:18)
--- NOTE | 2017-02-26 15:55 | NUR ---
on bed, complaint of pain right shoulder area ,medicated as ordered. resting , watching tv. dressing clean and dry, ice pack on right shoulder in place.,iv fluid infusing well ,left antecubital area. scd on.
[2017-02-26] MEDS ORDERED: MAG355OR18 PO (16:07)
[2017-02-26] MEDS ORDERED: BISA10SU61 RC (16:07)
[2017-02-26] MEDS ORDERED: LIDO35.4 TP (16:07)
[2017-02-26] MEDS ORDERED: DOCU-141 PO (16:07)
[2017-02-26] MEDS ORDERED: SENN-22 PO (16:07)
[2017-02-26] MEDS ORDERED: ONDA4TAB8 SL (16:07)
[2017-02-26] MEDS ORDERED: OXYC5CAP18 PO (16:07)
[2017-02-26] MEDS ORDERED: POLY17PO4 PO (16:07)
[2017-02-26] MEDS ORDERED: ZOLP5TAB2 PO (16:07)
--- NOTE | 2017-02-26 16:57 | NUR ---
resting comfortably. 5/10 pain rating
[2017-02-26] MEDS: POTASSIUM CHLORIDE 20 MEQ in IV D5 1/2 NS 1000 ML 1,000 ML IV PRN (18:51)
[2017-02-26] MEDS ORDERED: ZOLPIDEM 5 MG TABLET PO PRN (19:00)
[2017-02-26] MEDS ORDERED: ONDANSETRON ODT 4 MG TAB.RAPDIS SL PRN (19:00)
[2017-02-26] MEDS ORDERED: HYDROMORPHONE 2 MG/1 ML DISP.SYRIN IV PRN (19:00)
[2017-02-26] MEDS ORDERED: MIRALAX 17 GM POWD.PACK PO PRN (19:00)
[2017-02-26] MEDS ORDERED: MAG HYDROX/AL HYDROX/SIMETH 30 ML LIQUID UDC PO PRN (19:00)
[2017-02-26] MEDS ORDERED: Medication Not On Formulary EA (Zolpidem Tartrate (Ambien) 10 MG) PO PRN (19:00)
[2017-02-26] MEDS ORDERED: BISACODYL 10 MG SUPP.RECT RC PRN (19:00)
[2017-02-26] MEDS ORDERED: LORAZEPAM 1 MG TABLET PO PRN (19:00)
--- NOTE | 2017-02-26 20:03 | NUR ---
PATIENT SLEEPING INTERMITTENTLY. NO C/O OF PAIN AT THIS TIME. IV FLUID INFUSING ORDERED. F/C DRAINING YELLOW URINE. DAUGHTER AT THE BED SIDE. WILL CONTINUE TO MONITOR THE PATIENT SAFETY MEASURES OBSERVED.
[2017-02-26 20:20] VITALS: BP 145/83
[2017-02-26] MEDS ORDERED: SUCRALFATE 1 G TABLET ONE (20:53)
[2017-02-26] MEDS ORDERED: MORPHINE SULFATE SR 30 MG TABLET.SA PO ONE (20:54)
[2017-02-26] MEDS: FERROUS SULFATE 325 MG TABEC PO SCH (21:00)
[2017-02-26] MEDS ORDERED: LIDOCAINE 5% OINT 35.44 GM TUBE TP SCH (21:00)
[2017-02-26] MEDS ORDERED: DOCUSATE SODIUM 100 MG CAPSULE PO ONE (21:23)
[2017-02-26] MEDS ORDERED: ATORVASTATIN 20 MG TABLET ONE (21:25)
[2017-02-26] MEDS: ATORVASTATIN 20 MG TABLET PO SCH (21:49)
[2017-02-26] MEDS: DOCUSATE SODIUM 100 MG CAPSULE PO SCH (21:50)
[2017-02-26] MEDS: SUCRALFATE 1 G TABLET PO SCH (21:55)
[2017-02-26] MEDS: MORPHINE SULFATE SR 30 MG TABLET.SA PO SCH (21:55)
[2017-02-27] MEDS: MORPHINE SULFATE 4 MG/1 ML DISP.SYRIN IV PRN ×2 (00:14→02:27)
[2017-02-27] MEDS ORDERED: MORPHINE SULFATE 4 MG/1 ML DISP.SYRIN ONE (02:36)
[2017-02-27 04:42] VITALS: BP 153/86
[2017-02-27] MEDS: MORPHINE SULFATE SR 30 MG TABLET.SA PO SCH ×3 (05:22→21:15)
[2017-02-27] MEDS ORDERED: MORPHINE SULFATE SR 30 MG TABLET.SA PO ONE (05:30)
--- NOTE | 2017-02-27 06:45 | NUR ---
PATIENT SLEPT INTERMITTENTLY, ,CONTINUING ON PAIN MEDICATION ORDERED FOR RIGTH SHOULDER PAIN. DRESSING ON THE SURGERY SITE IS CLEAN AND INTACT. SAFETY MEASURES OBSERVED.
[2017-02-27] MEDS ORDERED: LIDOCAINE 5% OINT 35.44 GM TUBE TP SCH (07:20)
[2017-02-27] MEDS ORDERED: OXYCODONE HCL 5 MG TABLET PO PRN (07:30)
[2017-02-27] MEDS ORDERED: MORPHINE SULFATE 4 MG/1 ML DISP.SYRIN IV PRN (08:30)
[2017-02-27] MEDS: GABAPENTIN 300 MG CAPSULE PO SCH ×3 (08:57→17:01)
[2017-02-27] MEDS: SENNOSIDES/DOCUSATE SODIUM TABLET PO SCH (08:57)
[2017-02-27] MEDS: MODAFINIL 100 MG TABLET PO SCH (08:57)
[2017-02-27] MEDS: SUCRALFATE 1 G TABLET PO SCH ×4 (08:57→21:12)
[2017-02-27] MEDS: FERROUS SULFATE 325 MG TABEC PO SCH ×2 (08:57→21:12)
[2017-02-27] MEDS: VENLAFAXINE XR 37.5 MG CAP.SR.24H PO SCH (08:58)
[2017-02-27] MEDS: PANTOPRAZOLE SODIUM 40 MG TABLET.DR PO SCH ×2 (08:58→17:02)
[2017-02-27] MEDS: PAROXETINE HCL 20 MG TABLET PO SCH (08:58)
[2017-02-27] MEDS: DILTIAZEM HCL CD 180 MG CAP.SR.24H PO SCH (08:58)
[2017-02-27] MEDS: POTASSIUM CHLORIDE 20 MEQ in IV D5 1/2 NS 1000 ML 1,000 ML IV PRN ×2 (09:05→22:18)
[2017-02-27 11:50] VITALS: BP 165/84
--- NOTE | 2017-02-27 14:30 | NUR ---
PT IN BED AWAKE, ALERT, ORIENTED X4, REFUSED BREAKFAST AND LUNCH. ENCOURAGE POS, COMFORTABLE PAIN UNDERS CONTROL, CALL LIGHT IN REACH.
[2017-02-27 16:04] VITALS: BP 144/72
--- NOTE | 2017-02-27 17:00 | NUR ---
Spoke with pt's son and explained to him that pt will be dc to rehab when md orders at this time we donot have dc orders yet and will be contact him prior to dc to rehab, understand also was explained to pt seems to understand, f/c dc as per orders.
[2017-02-27 20:22] VITALS: BP 131/66
[2017-02-27] MEDS: DOCUSATE SODIUM 100 MG CAPSULE PO SCH (21:11)
[2017-02-27] MEDS: ATORVASTATIN 20 MG TABLET PO SCH (21:12)
[2017-02-28 04:53] VITALS: BP 134/65
[2017-02-28] MEDS: MORPHINE SULFATE SR 30 MG TABLET.SA PO SCH ×2 (06:38→13:32)
[2017-02-28] MEDS: SUCRALFATE 1 G TABLET PO SCH ×3 (06:38→16:59)
[2017-02-28] MEDS: PANTOPRAZOLE SODIUM 40 MG TABLET.DR PO SCH ×2 (06:38→16:59)
[2017-02-28 06:48] LABS: BASOPHILS % (AUTO) 0.8 % (0.0-2.0); EOSINOPHILS # (AUTO) 0.2 K/uL (0.0-0.7); EOSINOPHILS % (AUTO) 3.5 % (0.0-7.0); HEMATOCRIT 32.7 % (37-47); HEMOGLOBIN 10.3 G/DL (12.0-16.0); LYMPHOCYTES # (AUTO) 1.2 K/UL (0.8-4.8); LYMPHOCYTES % (AUTO) 19.9 % (20.5-51.5); MEAN CORPUSCULAR HEMOGLOBIN 26.5 UUG (27.0-31.0); MEAN CORPUSCULAR HGB CONC 32 g/dL (32.0-37.0); MEAN CORPUSCULAR VOLUME 84.3 FL (81.0-99.0); MONOCYTES # (AUTO) 0.6 K/UL (0.1-1.30); MONOCYTES % (AUTO) 9.6 % (0.0-11.0); NEUTROPHILS # (AUTO) 4.2 K/UL (1.8-8.9); NEUTROPHILS % (AUTO) 66.2 % (38.5-71.5); PLATELET COUNT (AUTO) 245 K/UL (150-450); RED BLOOD CELL COUNT(AUTO) 3.88 MIL/UL (4.2-5.4); WHITE BLOOD COUNT (AUTO) 6.2 K/UL (4.0-11.2)
[2017-02-28 07:15] LABS: BILIRUBIN,TOTAL 0.2 mg/dL (0.2-1.0); CREATININE 0.8 mg/dL (0.6-1.3); MAGNESIUM 1.9 mg/dL (1.8-2.4); PHOSPHOROUS 3.4 mg/dL (2.5-4.9); TOTAL PROTEIN, SERUM 5.4 g/dL (6.4-8.2)
--- NOTE | 2017-02-28 08:30 | NUR ---
AWAKE ALERT COOPERATE WELL NO SOB OR PAIN RT SHOULDER DSG D/I WITH ICE PK INPLACE NEUROVASCULAR CHECH WNL AND HAVE SLING INPLACE RESTING WELL WITH BED ALARM ON AND CALL YAP IN REACH
[2017-02-28] MEDS: GABAPENTIN 300 MG CAPSULE PO SCH ×3 (08:45→16:59)
[2017-02-28] MEDS: SENNOSIDES/DOCUSATE SODIUM TABLET PO SCH (08:45)
[2017-02-28] MEDS: FERROUS SULFATE 325 MG TABEC PO SCH (08:46)
[2017-02-28] MEDS: PAROXETINE HCL 20 MG TABLET PO SCH (08:46)
[2017-02-28] MEDS: MODAFINIL 100 MG TABLET PO SCH (08:46)
[2017-02-28] MEDS: VENLAFAXINE XR 37.5 MG CAP.SR.24H PO SCH (08:46)
[2017-02-28] MEDS: DILTIAZEM HCL CD 180 MG CAP.SR.24H PO SCH (08:49)
[2017-02-28 11:09] VITALS: BP 136/68
[2017-02-28 15:09] VITALS: BP 130/64
--- NOTE | 2017-02-28 16:00 | NUR ---
DR PEREZ WAS INFORM OF NARE SWAB RESULT WAS POSITIVE MRSA AND ORDER BACTROBAN OINTMENT APPLY TO NARE BID X7DAYS AND MEDICATION GIVEN TO PATIENT WITH INSTRUCTION,UNDERSTAND
[2017-02-28] MEDS ORDERED: MUPIROCIN 2% OINT 22 GM TUBE NS SCH (16:30)
--- NOTE | 2017-02-28 16:30 | NUR ---
D/C INSTRUCTION GIVEN REGARDING F/U WITH OWN PMD/ORTHOPEDIC DR AND CONTINUE HOME MEDICINE PRECRIPTION/LIST AND HOME HEALTH WILL F/U AT HOME TEL OF NURSE WAS [id number] AND KEEP DSG INCISION DRY CLEAN AT ALL TIME AND PUT SLING ON WHEN UP AMBULATE USE ICE PK IF NEED,VERBALIZES UNDERSTAND
--- NOTE | 2017-02-28 18:45 | NUR ---
D/C HOME WITH HER BELONGING ACCOMPANIES WITH DAUGHTER D/C INSTRUCTION GIVEN TO PATIENT AND DAUGHTER ,VERBALIZES UNDERSTAND
== END 2017-02-28 18:45 | disposition home health service (06) | DRG 495 ==
LOC: MED 15:30
PROVIDERS: ADMIT Internal Medicine; ATTEND Internal Medicine
PROC: 0PW Upper Bones, Revision (ICD-10-PCS; principal; 2017-02-26)
DX: T84.038A Mechanical loosening of other internal prosthetic joint, initial encounter (principal); E43 Unspecified severe protein-calorie malnutrition; Z68.32 Body mass index [BMI] 32.0-32.9, adult; Y83.8 Other surgical procedures as the cause of abnormal reaction of the patient, or of later complication, without mention of misadventure at the time of the procedure; Y92.89 Other specified places as the place of occurrence of the external cause; W01.0XXA Fall on same level from slipping, tripping and stumbling without subsequent striking against object, initial encounter; R19.5 Other fecal abnormalities; D50.9 Iron deficiency anemia, unspecified; E66.9 Obesity, unspecified; F31.9 Bipolar disorder, unspecified; J44.9 Chronic obstructive pulmonary disease, unspecified; G89.29 Other chronic pain; J45.909 Unspecified asthma, uncomplicated; G62.9 Polyneuropathy, unspecified; E78.5 Hyperlipidemia, unspecified; M81.0 Age-related osteoporosis without current pathological fracture; E55.9 Vitamin D deficiency, unspecified; Z86.73 Personal history of transient ischemic attack (TIA), and cerebral infarction without residual deficits; R29.6 Repeated falls; M19.90 Unspecified osteoarthritis, unspecified site
CPT/HCPCS: 36415; 73020; 83735; 84100; 85025; 97161; A4217; A4649; J0690; J1100; J1170; J2270; J2405; J2710; J3010; J3480; J3490; J7120

== ENCOUNTER → 2017-02-26 | Day surgery (SDC) | payer MEDICARE, OTHER ==
[~2017-02-26] MED LIST changes: +BISA10SU61 RC; +CEFAZOLIN 1 G VIAL MC ONE; +DEXAMETHASONE SOD PHOSPHATE 4 MG INJ IV ONE; +DOCU-141 PO; +FENTANYL CITRATE 100 MCG/2 ML AMPUL ONE; +FERR325T28 PO; +GLYCOPYRROLATE 0.2 MG/ML VIAL MC ONE; +HYDR2DIS IV; +HYDROMORPHONE 1 MG/1 ML DISP.SYRIN ONE; -IRON150C10 PO; +IRR NORMAL SALINE IRRIGATION 2000 ML BOTTLE IR ONE; +IV D5W-0.45% NS +20 KCL 1,000 ML IV ONE; +IV LACTATED RINGERS SOLUTION 1,000 ML BAG MC ONE; +LIDO35.4 TP; +LIDOCAINE HCL 2% 20 ML VIAL MC ONE; +MAG355OR18 PO; -MORP15TA71 PO; +MORP30TA59 PO; +NEOSTIGMINE METHYLSULFATE 10 MG/10 ML VIAL IV ONE; +ONDA4TAB8 SL; +ONDANSETRON 4 MG/2 ML VIAL IV ONE; +OXYC5CAP18 PO; +POLY17PO4 PO; +POLYMYXIN B SULFATE 500,000 UNITS, BACITRACIN 50,000 UNITS, NORMAL SALINE 20 ML MC ONE; +PROPOFOL 200 MG/20 ML BOTTLE IV ONE; +SENN-22 PO; +SEVOFLURANE 250 ML BOTTLE IH ONE; +SEVOFLURANE 250 ML BOTTLE ONE; +VENL37.55 PO; -VENL75CA62 PO; +ZOLP5TAB2 PO
== END | disposition other institution (70) ==
LOC: DS 09:49
PROVIDERS: ATTEND Orthopaedic Surgery Sports Medicine
DX: T84.038A Mechanical loosening of other internal prosthetic joint, initial encounter (principal)
CPT/HCPCS: 73020; A4217; A4649; J0690; J1100; J1170; J2405; J2710; J3010; J3490; J7120